=== PATIENT | male | born 1960 | race American Indian/Alaskan Native ===

== ENCOUNTER 2022-02-05 14:15 | Inpatient (IN) | payer MEDICARE ==
[2022-02-05] MEDS ORDERED: SODIUM CHLORIDE 0.9% 1000 ML 1,000 ML IV ONE ×2 (14:47→17:35)
--- NOTE | 2022-02-05 15:42 | Procedure Note ---
Date of procedure: 02/05/22 Pre-op diagnosis: Sepsis Post-op diagnosis: same Procedure: Right femoral vein triple-lumen catheter placement under ultrasound guidance After informed consent was obtained, a timeout was taken with the patient's nurse at bedside to verify the correct patient, the correct procedure, and correct operative site. Local anesthesia obtained with 1% lidocaine. Ultrasound was utilized to localize the right femoral vein without difficulty. The Seldinger technique was utilized under ultrasound guidance to insert a seeker needle into the right femoral vein without difficulty. A guidewire was then advanced via the seeker needle into the right femoral vein and the seeker needle subsequently moved over the guidewire. A scalpel was used to incise the skin at the insertion site. A dilator was then passed over the guidewire into the right femoral vein and subsequently removed. A preflush triple-lumen catheter was then advanced to the right femoral vein without difficulty and the guidewire subsequently removed. All 3 ports flush and drawl with ease. 3-0 silk suture was utilized to suture the triple-lumen catheter in place. A Biopatch was placed at the insertion site. A sterile dressing was utilized to cover the triple-lumen catheter site. Estimated blood loss minimal, complications none. Specimens none. Anesthesia: local Surgeon: FLO MANCIA Estimated blood loss: minimal Pathology: none Condition: stable Disposition: other
--- NOTE | 2022-02-05 15:42 | History and Physical Report ---
History of Present Illness Chief complaint: His blood pressure is low History of present illness: 61 YO Male with CHF, DM, history is CVA, Seizure Disorder, history of Hyperparathyroidism, ESRD on HD, HTN, PVD, Vascular Dementia with Behavioral Disturbance, Cerebral Atherosclerosis, BLE Pressure sores present on admission presents to ED for evaluation. Patient is confused with diminished cognition and is unable to provide history. Patient history taken from EMS staff, ED staff, as well as patient family who was made available by telephone for interview. Patient presented to [place] outpatient clinic and was found to have hypotension with a systolic blood pressure in the 80s. EMS was notified and upon arrival the patient was found to be in distress and subsequent transported to [facility] for further care and evaluation of the aforementioned symptoms. The patient was seen and evaluated in the emergency department. All lab and imaging studies reviewed. Patient found to have a systolic blood pressure in the 60s with concomitant tachycardia suspected secondary to urinary tract infection complicated by sepsis, toxic metabolic encephalopathy, volume depletion, end- stage renal disease in need of urgent dialysis. Patient treated with IV fluid resuscitation therapy with mild improvement in symptoms. Patient admitted to IMCU due to increased risk of worsening symptoms and for medical stabilization. Patient initiated on sepsis protocol in ED. Patient is confused with diminished cognition but has a positive gag reflex and is able to protect his airway without difficulty the time my evaluation. No prior admission for review. No medication listed at time of admission for reconciliation. Advanced care planning conducted in ED. Nephrology team consulted in ED. Past History Past Medical History: diabetes, ESRD, heart failure, hypertension, PVD, stroke, other (See HPI) Past Surgical History: Other (Dialysis access) Social history: single. denies: smoking, alcohol abuse, prescription drug abuse Family history: diabetes, hypertension Medications and Allergies Allergies Allergy/AdvReac Type Severity Reaction Status Date / Time No Known Allergies Allergy Verified 02/05/22 14:20 Active Meds: Active Medications Sodium Chloride (Nacl 0.9% 1000 Ml) 1,000 mls @ 999 mls/hr IV BOLUS ONE Stop: 02/05/22 15:47 Review of Systems ROS unobtainable: due to mental status Exam - Constitutional Vitals: Temp Pulse Resp BP Pulse Ox 105 H 60/32 76 L 02/05/22 14:17 02/05/22 14:17 02/05/22 14:17 General appearance: Present: mild distress - EENT Eyes: Present: PERRL ENT: hearing decreased - Neck Neck: Present: supple, normal ROM - Respiratory Respiratory effort: normal Respiratory: bilateral: diminished - Cardiovascular Heart Sounds: Present: S1 & S2. Absent: rub, click - Extremities Extremities: abnormal Extremity abnormal: black, pulses diminished Peripheral Pulses: abnormal (Capillary refill greater than 3.5 seconds) - Abdominal General gastrointestinal: Present: soft, non-tender, non-distended - Integumentary Integumentary: Present: clear, dry, clammy, decreased turgor - Musculoskeletal Musculoskeletal: generalized weakness - Psychiatric Psychiatric: no appropriate mood/affect, no intact judgment & insight, no memory intact - Neurologic Neurologic: CNII-XII intact, moves all extremities, no gait normal Results - Labs CBC & Chem 7: 02/05/22 15:44 02/05/22 15:44 Assessment and Plan - Patient Problems (1) Sepsis Current Visit: Yes Status: Acute Plan to address problem: Sepsis protocol: Chest x-ray, urinalysis, CBC, IV antibiotic therapy, IV fluid resuscitation therapy, monitor urine output every shift, monitor fluid balance, maintain mean arterial pressure greater than equal to 65, serial lactic acid level, IV pressor support as clinically indicated. (2) Toxic metabolic encephalopathy Current Visit: Yes Status: Acute Plan to address problem: Treat sepsis, supportive care, neuro check, seizure precautions, aspiration precautions, fall precautions. (3) End stage renal disease Current Visit: Yes Status: Acute Plan to address problem: Nephrology team consulted in ED, dialysis per renal team. (4) Volume depletion Current Visit: Yes Status: Acute Plan to address problem: IV for resuscitation therapy, BMP, repeat BMP in AM. (5) Malnutrition Current Visit: Yes Status: Acute Qualifiers: Protein-calorie malnutrition severity: moderate Plan to address problem: Increase protein intake, dietary supplementation. (6) End stage renal disease Current Visit: Yes Status: Acute Plan to address problem: Nephrology team consulted in ED, dialysis as per renal team. (7) Vascular dementia with behavior disturbance Current Visit: Yes Status: Acute Plan to address problem: Verbal prompt, verbal redirection, benzodiazepine therapy as clinically indicated. (8) Cerebral atherosclerosis Current Visit: Yes Status: Acute Plan to address problem: Risk factor reduction, antiplatelet therapy as clinically indicated. (9) Peripheral vascular disease Current Visit: Yes Status: Acute Plan to address problem: Supportive care, continue wound care, continue medical management. Outpatient vascular surgery follow-up. (10) Pressure sore Current Visit: Yes Status: Acute Plan to address problem: Wound care consulted, supportive care. (11) Seizure disorder Current Visit: Yes Status: Acute Plan to address problem: Seizure cautions, neuro check, supportive care. No seizure activity at this time. (12) Hyperparathyroidism Current Visit: Yes Status: Acute Plan to address problem: Continue medical management as clinically indicated, supportive care. (13) Hyperkalemia Current Visit: Yes Status: Acute Plan to address problem: Insulin, D50, BMP, repeat BMP in a.m., no EKG changes (14) DVT prophylaxis Current Visit: Yes Status: Acute Plan to address problem: SCD to bilateral lower extremities while in bed (15) Advance care planning Current Visit: Yes Status: Acute Plan to address problem: Disease education done, care plan discussed, diagnoses discussed, prognosis disc ussed, patient is full code, +30 minutes. (16) Preventative health care Current Visit: Yes Status: Acute Plan to address problem: Patient to follow-up with primary care physician for all age and risk factor appropriate screening tests, risk factor reduction, +30 minutes.
--- NOTE | 2022-02-05 15:49 | XRay Report ---
CHEST 1 VIEW 02/05/2022 2:42 PM INDICATION / CLINICAL INFORMATION: Altered Mental Status. COMPARISON: None available. FINDINGS: SUPPORT DEVICES: None. HEART / MEDIASTINUM: Borderline to mild cardiomegaly. LUNGS / PLEURA: There is mild pulmonary congestion. No focal consolidation, pleural effusion or pneum othorax. ADDITIONAL FINDINGS: No significant additional findings. IMPRESSION: 1. Cardiomegaly and pulmonary venous congestion but no CHF. Signer Name: Woody Corbett Jr, MD Signed: 02/05/2022 3:44 PM Workstation Name: [id number]
[2022-02-05 16:10] LABS: Hematocrit 25.8 % (35.5-45.6); Hemoglobin 8.6 gm/dl (11.8-15.2); Mean Corpuscular HGB Conc 33 % (32-34); Mean Corpuscular Volume 92 fl (84-94); Red Cell Distribution Width 17.8 % (13.2-15.2)
[2022-02-05 16:11] LABS: Platelet Count 98 K/mm3 (140-440)
[2022-02-05 16:21] LABS: INR 1.39 (0.87-1.13)
[2022-02-05 16:37] LABS: Alanine Aminotransferase 136 units/L (7-56); Albumin 3.3 g/dL (3.9-5); Blood Urea Nitrogen 80 mg/dL (9-20); Calcium 8.4 mg/dL (8.4-10.2); Hemolysis Index 8
[2022-02-05 16:40] LABS: BUN/Creatinine Ratio 9
[2022-02-05] MEDS ORDERED: INSULIN REGULAR, HUMAN 100 UNITS/1 ML IV ONE (16:42)
[2022-02-05] MEDS ORDERED: DEXTROSE 50% IN WATER (25GM) 50 ML SYRINGE IV ONE ×7 (16:43→23:14)
[2022-02-05] MEDS ORDERED: SODIUM POLYSTYRENE 15 GM/60 ML ORAL LIQD PO ONE (16:43)
[2022-02-05 16:44] LABS: Band Neutrophils # (Manual) 0.2 K/mm3; Basophils % (Manual) 0 % (0.0-1.8); Eosinophils % (Manual) 0 % (0.0-4.3); Total Cells Counted 100
[2022-02-05 16:45] LABS: Anisocytosis 1+; Burr Cells 1+; Platelet Estimate Consistent w Auto; Poikilocytosis 1+
[2022-02-05] MEDS ORDERED: CALCIUM CHLORIDE 1,000 MG in SODIUM CHLORIDE 0.9% 100 ML IV ONE (17:30)
[2022-02-05] MEDS ORDERED: oxyCODONE /ACETAMINOPHEN 5-325MG TAB PO PRN (18:16)
[2022-02-05] MEDS ORDERED: SODIUM CHLORIDE 0.9% 1000 ML IV SOLN IV SCH (18:16)
[2022-02-05] MEDS ORDERED: ALBUTEROL 2.5 MG/3 ML NEBU IH PRN (18:16)
[2022-02-05] MEDS ORDERED: ACETAMINOPHEN 325 MG TAB PO PRN ×2 (18:16)
[2022-02-05] MEDS ORDERED: HYDROmorphone 0.5 MG/0.5 ML INJ IV PRN ×2 (18:16)
--- NOTE | 2022-02-05 18:23 | Emergency Department Report ---
ED Altered Mental Status HPI - General Chief Complaint: Altered Mental Status Stated Complaint: HYPERTENSION/VOMITING PUI?: No Time Seen by Provider: 02/05/22 14:45 Source: EMS Mode of arrival: Stretcher Limitations: Altered Mental Status - History of Present Illness Initial Comments: PT ARRIVING FROM [facility] FOR AMS, HYPOTENSIVE 80/62. 76% RA. UNKNOWN LKWT. Complaint: altered mental status, confusion, decreased responsiveness -: Gradual, hour(s) Severity: severe Consistency of Symptoms: constant Context: unknown Associated Symptoms: denies: denies other symptoms, chest pain, cough - Related Data Allergies Allergy/AdvReac Type Severity Reaction Status Date / Time No Known Allergies Allergy Verified 02/05/22 14:20 ED Review of Systems ROS: Stated complaint: HYPERTENSION/VOMITING Other details as noted in HPI Constitutional: denies: chills, fever Eyes: denies: eye pain, eye discharge, vision change ENT: denies: ear pain, throat pain Respiratory: denies: cough, shortness of breath, wheezing Cardiovascular: denies: chest pain, palpitations Endocrine: no symptoms reported Gastrointestinal: denies: abdominal pain, nausea, diarrhea Genitourinary: denies: urgency, dysuria Musculoskeletal: denies: back pain, joint swelling, arthralgia Skin: denies: rash, lesions Neurological: denies: headache, weakness, paresthesias Psychiatric: denies: anxiety, depression Hematological/Lymphatic: denies: easy bleeding, easy bruising ED Past Medical Hx - Past Medical History Previous Medical History?: Yes Hx Congestive Heart Failure: Yes Hx Diabetes: Yes Hx Renal Disease: Yes (esrd,dialysis) Additional medical history: osteomylelits ,cva,hyperparathyroidism,seizures, ED Physical Exam - General Limitations: Altered Mental Status General appearance: lethargic, cachectic - Head Head exam: Present: atraumatic, normocephalic - ENT ENT exam: Present: mucous membranes moist - Neck Neck exam: Present: normal inspection - Respiratory Respiratory exam: Present: normal lung sounds bilaterally. Absent: respiratory distress - Cardiovascular Cardiovascular Exam: Present: regular rate, normal rhythm. Absent: systolic murmur, diastolic murmur, rubs, gallop - GI/Abdominal GI/Abdominal exam: Present: soft, normal bowel sounds - Rectal Rectal exam: Present: deferred - Extremities Exam Extremities exam: Present: normal inspection - Back Exam Back exam: Present: normal inspection - Expanded Neurological Exam Expanded Neurological exam: Present: innattentive Patient oriented to: Absent: person, place, time Best Eye Response ([place]): (2) open to pain Best Motor Response ([place]): (5) localizes to pain Best Verbal Response ([place]): (3) inappropriate words [place] Total: 10 - Skin Skin exam: Present: warm, dry, intact, normal color. Absent: rash ED Course Vital Signs 02/05/22 02/05/22 02/05/22 14:17 14:56 15:15 Temperature Pulse Rate 105 H 75 70 Respiratory 20 20 Rate Blood Pressure 60/32 90/59 89/60 [Left] O2 Sat by Pulse 76 L 100 100 Oximetry 02/05/22 02/05/22 02/05/22 15:30 16:06 16:18 Temperature 98.7 F Pulse Rate 70 76 78 Respiratory 20 18 20 Rate Blood Pressure 93/58 91/65 87/64 [Left] O2 Sat by Pulse 100 100 100 Oximetry 02/05/22 02/05/22 02/05/22 16:27 17:18 17:46 Temperature Pulse Rate 87 74 74 Respiratory 20 18 18 Rate Blood Pressure 106/62 94/49 105/54 [Left] O2 Sat by Pulse 100 99 99 Oximetry - Lab Data Result diagrams: 02/05/22 15:44 02/05/22 15:44 Lab Results 02/05/22 02/05/22 02/05/22 Range/Units 15:44 15:44 15:44 WBC 8.5 (4.5-11.0) K/mm3 RBC 2.80 L (3.65-5.03) M/mm3 Hgb 8.6 L (11.8-15.2) gm/dl Hct 25.8 L (35.5-45.6) % MCV 92 (84-94) fl MCH 31 (28-32) pg MCHC 33 (32-34) % RDW 17.8 H (13.2-15.2) % Plt Count 98 L (140-440) K/mm3 Add Manual Diff Complete Total Counted 100 Seg Neutrophils % Meat Grading Machine Operator Seg Neuts % (Manual) 92.0 H (40.0-70.0) % Band Neutrophils % 2.0 % Lymphocytes % (Manual) 5.0 L (13.4-35.0) % Reactive Lymphs % (Man) 0 % Monocytes % (Manual) 1.0 (0.0-7.3) % Eosinophils % (Manual) 0 (0.0-4.3) % Basophils % (Manual) 0 (0.0-1.8) % Metamyelocytes % 0 % Myelocytes % 0 % Promyelocytes % 0 % Blast Cells % 0 % Nucleated RBC % Not Reportable Seg Neutrophils # Man 7.8 H (1.8-7.7) K/mm3 Band Neutrophils # 0.2 K/mm3 Lymphocytes # (Manual) 0.4 L (1.2-5.4) K/mm3 Abs React Lymphs (Man) 0.0 K/mm3 Monocytes # (Manual) 0.1 (0.0-0.8) K/mm3 Eosinophils # (Manual) 0.0 (0.0-0.4) K/mm3 Basophils # (Manual) 0.0 (0.0-0.1) K/mm3 Metamyelocytes # 0.0 K/mm3 Myelocytes # 0.0 K/mm3 Promyelocytes # 0.0 K/mm3 Blast Cells # 0.0 K/mm3 WBC Morphology Not Reportable Hypersegmented Neuts Not Reportable Hyposegmented Neuts Not Reportable Hypogranular Neuts Not Reportable Smudge Cells Not Reportable Toxic Granulation Not Reportable Toxic Vacuolation Not Reportable Dohle Bodies Not Reportable Pelger-Huet Anomaly Not Reportable Laney Rods Not Reportable Platelet Estimate Consistent w auto Clumped Platelets Not Reportable Plt Clumps, EDTA Not Reportable Large Platelets Not Reportable Giant Platelets Not Reportable Platelet Satelliting Not Reportable Plt Morphology Comment Not Reportable RBC Morphology Not Reportable Dimorphic RBCs Not Reportable Polychromasia Not Reportable Hypochromasia Not Reportable Poikilocytosis 1+ Anisocytosis 1+ Microcytosis Not Reportable Macrocytosis Not Reportable Spherocytes Not Reportable Pappenheimer Bodies Not Reportable Sickle Cells Not Reportable Target Cells Not Reportable Tear Drop Cells Not Reportable Ovalocytes Not Reportable Helmet Cells Not Reportable Gastelum-[place] Bodies Not Reportable Ericson Rings Not Reportable Jaxon Cells 1+ Bite Cells Not Reportable Crenated Cell Not Reportable Elliptocytes Not Reportable Acanthocytes (Spur) Not Reportable Rouleaux Not Reportable Hemoglobin C Crystals Not Reportable Schistocytes Not Reportable Malaria parasites Not Reportable [place] Bodies Not Reportable Hem Pathologist Commnt No PT 19.1 H (12.2-14.9) Sec. INR 1.39 H (0.87-1.13) Sodium 143 (137-145) mmol/L Potassium 6.5 H* (3.6-5.0) mmol/L Chloride 102.9 (98-107) mmol/L Carbon Dioxide 20 L (22-30) mmol/L Anion Gap 27 mmol/L BUN 80 H (9-20) mg/dL Creatinine 9.3 H (0.8-1.3) mg/dL Estimated GFR 7 ml/min BUN/Creatinine Ratio 9 % Glucose 81 (75-100) mg/dL Ketones Quantitative (Negative) Lactic Acid (0.7-2.0) mmol/L Calcium 8.4 (8.4-10.2) mg/dL Total Bilirubin 0.50 (0.1-1.2) mg/dL AST 72 H (5-40) units/L ALT 136 H (7-56) units/L Alkaline Phosphatase 480 H (35-129) units/L Ammonia (25-60) umol/L Total Creatine Kinase 80 (55-170) units/L Troponin T 0.521 H* (0.00-0.029) ng/mL NT-Pro-B Natriuret Pep > 61951 H (0-900) pg/mL Total Protein 6.3 (6.3-8.2) g/dL Albumin 3.3 L (3.9-5) g/dL Albumin/Globulin Ratio 1.1 % Salicylates (2.8-20.0) mg/dL Acetaminophen (10.0-30.0) ug/mL 02/05/22 02/05/22 02/05/22 Range/Units 15:44 15:44 15:44 WBC (4.5-11.0) K/mm3 RBC (3.65-5.03) M/mm3 Hgb (11.8-15.2) gm/dl Hct (35.5-45.6) % MCV (84-94) fl MCH (28-32) pg MCHC (32-34) % RDW (13.2-15.2) % Plt Count (140-440) K/mm3 Add Manual Diff Total Counted Seg Neutrophils % Seg Neuts % (Manual) (40.0-70.0) % Band Neutrophils % % Lymphocytes % (Manual) (13.4-35.0) % Reactive Lymphs % (Man) % Monocytes % (Manual) (0.0-7.3) % Eosinophils % (Manual) (0.0-4.3) % Basophils % (Manual) (0.0-1.8) % Metamyelocytes % % Myelocytes % % Promyelocytes % % Blast Cells % % Nucleated RBC % Seg Neutrophils # Man (1.8-7.7) K/mm3 Band Neutrophils # K/mm3 Lymphocytes # (Manual) (1.2-5.4) K/mm3 Abs React Lymphs (Man) K/mm3 Monocytes # (Manual) (0.0-0.8) K/mm3 Eosinophils # (Manual) (0.0-0.4) K/mm3 Basophils # (Manual) (0.0-0.1) K/mm3 Metamyelocytes # K/mm3 Myelocytes # K/mm3 Promyelocytes # K/mm3 Blast Cells # K/mm3 WBC Morphology Hypersegmented Neuts Hyposegmented Neuts Hypogranular Neuts Smudge Cells Toxic Granulation Toxic Vacuolation Dohle Bodies Pelger-Huet Anomaly Laney Rods Platelet Estimate Clumped Platelets Plt Clumps, EDTA Large Platelets Giant Platelets Platelet Satelliting Plt Morphology Comment RBC Morphology Dimorphic RBCs Polychromasia Hypochromasia Poikilocytosis Anisocytosis Microcytosis Macrocytosis Spherocytes Pappenheimer Bodies Sickle Cells Target Cells Tear Drop Cells Ovalocytes Helmet Cells Gastelum-[place] Bodies Ericson Rings [place] Cells Bite Cells Crenated Cell Elliptocytes Acanthocytes (Spur) Rouleaux Hemoglobin C Crystals Schistocytes Malaria parasites [place] Bodies Hem Pathologist Commnt PT (12.2-14.9) Sec. INR (0.87-1.13) Sodium (137-145) mmol/L Potassium (3.6-5.0) mmol/L Chloride (98-107) mmol/L Carbon Dioxide (22-30) mmol/L Anion Gap mmol/L BUN (9-20) mg/dL Creatinine (0.8-1.3) mg/dL Estimated GFR ml/min BUN/Creatinine Ratio % Glucose (75-100) mg/dL Ketones Quantitative (Negative) Lactic Acid 2.70 H* (0.7-2.0) mmol/L Calcium (8.4-10.2) mg/dL Total Bilirubin (0.1-1.2) mg/dL AST (5-40) units/L ALT (7-56) units/L Alkaline Phosphatase (35-129) units/L Ammonia (25-60) umol/L Total Creatine Kinase (55-170) units/L Troponin T (0.00-0.029) ng/mL NT-Pro-B Natriuret Pep (0-900) pg/mL Total Protein (6.3-8.2) g/dL Albumin (3.9-5) g/dL Albumin/Globulin Ratio % Salicylates < 0.3 L (2.8-20.0) mg/dL Acetaminophen 5.0 L (10.0-30.0) ug/mL 02/05/22 02/05/22 Range/Units 15:44 15:44 WBC (4.5-11.0) K/mm3 RBC (3.65-5.03) M/mm3 Hgb (11.8-15.2) gm/dl Hct (35.5-45.6) % MCV (84-94) fl MCH (28-32) pg MCHC (32-34) % RDW (13.2-15.2) % Plt Count (140-440) K/mm3 Add Manual Diff Total Counted Seg Neutrophils % Seg Neuts % (Manual) (40.0-70.0) % Band Neutrophils % % Lymphocytes % (Manual) (13.4-35.0) % Reactive Lymphs % (Man) % Monocytes % (Manual) (0.0-7.3) % Eosinophils % (Manual) (0.0-4.3) % Basophils % (Manual) (0.0-1.8) % Metamyelocytes % % Myelocytes % % Promyelocytes % % Blast Cells % % Nucleated RBC % Seg Neutrophils # Man (1.8-7.7) K/mm3 Band Neutrophils # K/mm3 Lymphocytes # (Manual) (1.2-5.4) K/mm3 Abs React Lymphs (Man) K/mm3 Monocytes # (Manual) (0.0-0.8) K/mm3 Eosinophils # (Manual) (0.0-0.4) K/mm3 Basophils # (Manual) (0.0-0.1) K/mm3 Metamyelocytes # K/mm3 Myelocytes # K/mm3 Promyelocytes # K/mm3 Blast Cells # K/mm3 WBC Morphology Hypersegmented Neuts Hyposegmented Neuts Hypogranular Neuts Smudge Cells Toxic Granulation Toxic Vacuolation Dohle Bodies Pelger-Huet Anomaly Laney Rods Platelet Estimate Clumped Platelets Plt Clumps, EDTA Large Platelets Giant Platelets Platelet Satelliting Plt Morphology Comment RBC Morphology Dimorphic RBCs Polychromasia Hypochromasia Poikilocytosis Anisocytosis Microcytosis Macrocytosis Spherocytes Pappenheimer Bodies Sickle Cells Target Cells Tear Drop Cells Ovalocytes Helmet Cells Gastelum-[place] Bodies Ericson Rings [place] Cells Bite Cells Crenated Cell Elliptocytes Acanthocytes (Spur) Rouleaux Hemoglobin C Crystals Schistocytes Malaria parasites [place] Bodies Hem Pathologist Commnt PT (12.2-14.9) Sec. INR (0.87-1.13) Sodium (137-145) mmol/L Potassium (3.6-5.0) mmol/L Chloride (98-107) mmol/L Carbon Dioxide (22-30) mmol/L Anion Gap mmol/L BUN (9-20) mg/dL Creatinine (0.8-1.3) mg/dL Estimated GFR ml/min BUN/Creatinine Ratio % Glucose (75-100) mg/dL Ketones Quantitative Negative (Negative) Lactic Acid (0.7-2.0) mmol/L Calcium (8.4-10.2) mg/dL Total Bilirubin (0.1-1.2) mg/dL AST (5-40) units/L ALT (7-56) units/L Alkaline Phosphatase (35-129) units/L Ammonia 22.0 L (25-60) umol/L Total Creatine Kinase (55-170) units/L Troponin T (0.00-0.029) ng/mL NT-Pro-B Natriuret Pep (0-900) pg/mL Total Protein (6.3-8.2) g/dL Albumin (3.9-5) g/dL Albumin/Globulin Ratio % Salicylates (2.8-20.0) mg/dL Acetaminophen (10.0-30.0) ug/mL - EKG Data -: EKG Interpreted by Me EKG shows normal: sinus rhythm - Radiology Data Radiology results: report reviewed, image reviewed - Medical Decision Making work up showed : - CRF : chornic on dilaysis - Hypotension : sepsis work up abx started , central line placed - AMS : 2ry to sepsis - Hypekalemia L Cacl3 , glucose and insulin , kaxalate Critical care attestation.: If time is entered above; I have spent that time in minutes in the direct care of this critically ill patient, excluding procedure time. ED Disposition Clinical Impression: Encephalopathy, Altered mental status, Hyperkalemia, Chronic renal failure, Hypotension Disposition: 09 ADMITTED INPATIENT Is pt being admited?: Yes Does the pt Need Aspirin: No Condition: Fair Referrals: ANGEL VIGIL MD [Primary Care Provider] - 3-5 Days
[2022-02-05] MEDS ORDERED: CEFEPIME/NS 2 GM/100 ML 2 GM/100 ML BAG IV SCH (19:00)
--- NOTE | 2022-02-05 19:43 | Procedure Note ---
Date of procedure: 02/05/22 Pre-op diagnosis: Sepsis Post-op diagnosis: same Procedure: Right internal jugular vein triple-lumen catheter placement. After informed consent was obtained, a timeout was taken with the patient's nurse at bedside to verify the correct patient, the correct procedure, and correct operative site. Local anesthesia obtained with 1% lidocaine. Ultrasound was utilized to localize the right internal jugular vein without difficulty. The Seldinger technique was utilized under ultrasound guidance to insert a seeker needle into the right internal jugular vein without difficulty. A guidewire was then advanced via the seeker needle into the right internal j ugular vein and the seeker needle subsequently moved over the guidewire. A scalpel was used to incise the skin at the insertion site. A dilator was then passed over the guidewire into the right femoral vein and subsequently removed. A preflush triple-lumen catheter was then advanced to the right internal jugular vein without difficulty and the guidewire subsequently removed. All 3 ports flush and drawl with ease. A Biopatch was placed at the insertion site. Estimated blood loss minimal, complications:Patient became agitated and subsequently discontinued right internal jugular vein triple-lumen catheter prior to x-ray evaluation. An alternative site was then chosen for access. Anesthesia: local Surgeon: FLO MANCIA Estimated blood loss: none Pathology: none Condition: stable Disposition: other
[2022-02-05] MEDS ORDERED: D5W/0.45% NACL 1,000 ML IV ONE (22:48)
[2022-02-05] MEDS: DEXTROSE 5% IN WATER 1,000 ML IV SCH (23:17)
[2022-02-06 00:29] LABS: Calcium 8.7 mg/dL (8.4-10.2)
[2022-02-06] MEDS: CEFEPIME/NS 1 GM/100 ML 1 GM/100 ML BAG IV SCH ×2 (01:14→20:30)
[2022-02-06 03:10] LABS: Chol/HDL Ratio 1.73 %; HDL Cholesterol 46 mg/dL (40-59); LDL Cholesterol,Direct 24 mg/dL (50-130)
[2022-02-06 05:30] LABS: Hematocrit 24.5 % (35.5-45.6); Hemoglobin 7.7 gm/dl (11.8-15.2); Mean Corpuscular HGB Conc 32 % (32-34); Mean Corpuscular Volume 94 fl (84-94); Red Blood Count 2.61 M/mm3 (3.65-5.03); Red Cell Distribution Width 17.5 % (13.2-15.2)
[2022-02-06 05:33] LABS: Platelet Count 81 K/mm3 (140-440)
[2022-02-06 05:55] LABS: Calcium 8.6 mg/dL (8.4-10.2)
[2022-02-06] MEDS ORDERED: DEXTROSE 50% IN WATER (25GM) 50 ML SYRINGE IV ONE ×3 (06:26→12:55)
[2022-02-06 06:36] LABS: Basophils % (Manual) 0 % (0.0-1.8); Eosinophils % (Manual) 0 % (0.0-4.3); Total Cells Counted 100
[2022-02-06 06:37] LABS: Platelet Estimate Consistent w Auto
[2022-02-06] MEDS ORDERED: SODIUM CHLORIDE 0.9% 100 ML IV PRN ×2 (10:00→15:00)
[2022-02-06] MEDS: DEXTROSE 5% IN WATER 1,000 ML IV SCH (10:18)
--- NOTE | 2022-02-06 13:22 | Progress Note ---
Assessment and Plan Assessment and plan: 61 YO Male with CHF, DM, history is CVA, Seizure Disorder, history of Hyperparathyroidism, ESRD on HD, HTN, PVD, Vascular Dementia with Behavioral Disturbance, Cerebral Atherosclerosis, BLE Pressure sores present on admission presents to ED for evaluation. Patient is confused with diminished cognition a nd is unable to provide history. Patient history taken from EMS staff, ED staff, as well as patient family who was made available by telephone for interview. Patient presented to [facility] outpatient clinic and was found to have hypotension with a systolic blood pressure in the 80s. EMS was notified and upon arrival the patient was found to be in distress and subsequent transported to [facility] for further care and evaluation of the aforementioned symptoms. The patient was seen and evaluated in the emergency department. All lab and imaging studies reviewed. Patient found to have a systolic blood pressure in the 60s with concomitant tachycardia suspected secondary to urinary tract infection complicated by sepsis, toxic metabolic encephalopathy, volume depletion, end- stage renal disease in need of urgent dialysis. Patient treated with IV fluid resuscitation therapy with mild improvement in symptoms. Patient admitted to IMCU due to increased risk of worsening symptoms and for medical stabilization. Patient initiated on sepsis protocol in ED. Patient is confused with diminished cognition but has a positive gag reflex and is able to protect his airway without difficulty the time my evaluation. No prior admission for review. No medication listed at time of admission for reconciliation. Advanced care planning conducted in ED. Nephrology team consulted in ED. Past History Past Medical History: diabetes, ESRD, heart failure, hypertension, PVD, stroke, other (See HPI) Past Surgical History: Other (Dialysis access) Social history: single. denies: smoking, alcohol abuse, prescription drug abuse Family history: diabetes, hypertension 02/06: Patient seen and examined continues with persistent hypoglycemia will change to D10. I did discuss with the sister who indicates that the patient has been having a failure to thrive over the past few days. That the patient ACTUALLY had a seizure of the doctor's office. We will obtain neurology consult in a.m.. No further seizures has been documented here so no need for the EEG unless recommended by the neurologist. We will resume diet as tolerated the sister also tells me that the patient has been refusing meds. She is not sure if the patient has been compliant with dialysis we will try to get information about about from the dialysis center that he goes to. In the meantime continue empiric treatment for underlying sepsis. We will give midodrine. I do not have a source for this but without infection. We will try to call the facility where he went to to see with urinary tract infection diagnosis was made at. Patient has not demonstrated any fever here. (1) Sepsis Current Visit: Yes Status: Acute Plan to address problem: Sepsis protocol: Chest x-ray, urinalysis, CBC, IV antibiotic therapy, IV fluid resuscitation therapy, monitor urine output every shift, monitor fluid balance, maintain mean arterial pressure greater than equal to 65, serial lactic acid level, IV pressor support as clinically indicated. (2) Toxic metabolic encephalopathy Current Visit: Yes Status: Acute Plan to address problem: Treat sepsis, supportive care, neuro check, seizure precautions, aspiration precautions, fall precautions. (3) End stage renal disease Current Visit: Yes Status: Acute Plan to address problem: Nephrology team consulted in ED, dialysis per renal team. (4) Volume depletion Current Visit: Yes Status: Acute Plan to address problem: IV for resuscitation therapy, BMP, repeat BMP in AM. (5) severe protein malnutrition Current Visit: Yes Status: Acute Qualifiers: Protein-calorie malnutrition severity: Severe Plan to address problem: Increase protein intake, dietary supplementation. (6) End stage renal disease Current Visit: Yes Status: Acute Plan to address problem: Nephrology team consulted in ED, dialysis as per renal team. (7) Vascular dementia with behavior disturbance Current Visit: Yes Status: Acute Plan to address problem: Verbal prompt, verbal redirection, benzodiazepine therapy as clinically indicated. (8) Cerebral atherosclerosis Current Visit: Yes Status: Acute Plan to address problem: Risk factor reduction, antiplatelet therapy as clinically indicated. (9) Peripheral vascular disease Current Visit: Yes Status: Acute Plan to address problem: Supportive care, continue wound care, continue medical management. Outpatient vascular surgery follow-up. (10) multiple pressure ulcers present on admission Current Visit: Yes Status: Acute Plan to address problem: Wound care consulted, supportive care. (11) Seizure disorder Current Visit: Yes Status: Acute Plan to address problem: Seizure cautions, neuro check, supportive care. No seizure activity at this time. (12) Hyperparathyroidism Current Visit: Yes Status: Acute Plan to address problem: Continue medical management as clinically indicated, supportive care. (13) Hyperkalemia Current Visit: Yes Status: Acute Plan to address problem: Insulin, D50, BMP, repeat BMP in a.m., no EKG changes (14) DVT prophylaxis Current Visit: Yes Status: Acute Plan to address problem: SCD to bilateral lower extremities while in bed (15) Advance care planning Current Visit: Yes Status: Acute Plan to address problem: Disease education done, care plan discussed, diagnoses discussed, prognosis discussed, patient is full code, +30 minutes. (16) Preventative health care Current Visit: Yes Status: Acute Plan to address problem: Patient to follow-up with primary care physician for all age and risk factor appropriate screening tests, risk factor reduction, +30 minutes. The high probability of a clinically significant, sudden or life threatening deterioration of the [multiple organ] system(s) required my full and direct attention, intervention and personal management. The aggregate critical care time was [60] minutes. This time is in addition to time spent performing reported procedures but includes the following: [x] Data Review and interpretation [x] Patient assessment and monitoring of vital signs [x] Documentation [x] Medication orders and management History Interval history: Patient seen and examined, extremely lethargic, discussed with family. Patient is a DNR Hospitalist Physical - Physical exam Narrative exam: General appearance: Present: mild distress - EENT Eyes: Present: PERRL ENT: hearing decreased - Neck Neck: Present: supple, normal ROM - Respiratory Respiratory effort: normal Respiratory: bilateral: diminished - Cardiovascular Heart Sounds: Present: S1 & S2. Absent: rub, click - Extremities Extremities: abnormal Extremity abnormal: black, pulses diminished Peripheral Pulses: abnormal (Capillary refill greater than 3.5 seconds) - Abdominal General gastrointestinal: Present: soft, non-tender, non-distended - Integumentary Integumentary: Present: Please see wound care documentation for multiple skin ulcers as documented also pictorially clammy, decreased turgor - Musculoskeletal Musculoskeletal: generalized weakness - Psychiatric Psychiatric: no appropriate mood/affect, no intact judgment & insight, no memory intact - Neurologic Neurologic: CNII-XII intact, moves all extremities, no gait normal - Constitutional Vitals: Temp Pulse Resp BP Pulse Ox 98.7 F 63 15 96/59 96 02/05/22 16:06 02/06/22 10:00 02/06/22 07:30 02/06/22 07:30 02/06/22 07:30 General appearance: Present: mild distress HEART Score - HEART Score Troponin: Troponin T 0.521 ng/mL (0.00-0.029) H* 02/05/22 15:44 Results - Labs CBC & Chem 7: 02/06/22 04:59 02/06/22 04:59 Labs: Laboratory Last Values WBC 9.1 K/mm3 (4.5-11.0) 02/06/22 04:59 RBC 2.61 M/mm3 (3.65-5.03) L 02/06/22 04:59 Hgb 7.7 gm/dl (11.8-15.2) L 02/06/22 04:59 Hct 24.5 % (35.5-45.6) L 02/06/22 04:59 MCV 94 fl (84-94) 02/06/22 04:59 MCH 30 pg (28-32) 02/06/22 04:59 MCHC 32 % (32-34) 02/06/22 04:59 RDW 17.5 % (13.2-15.2) H 02/06/22 04:59 Plt Count 81 K/mm3 (140-440) L 02/06/22 04:59 Add Manual Diff Complete 02/06/22 04:59 Total Counted 100 02/06/22 04:59 Seg Neutrophils % Knife Blade Polisher 02/06/22 04:59 Seg Neuts % (Manual) 95.0 % (40.0-70.0) H 02/06/22 04:59 Band Neutrophils % 0 % 02/06/22 04:59 Lymphocytes % (Manual) 3.0 % (13.4-35.0) L 02/06/22 04:59 Reactive Lymphs % (Man) 0 % 02/06/22 04:59 Monocytes % (Manual) 2.0 % (0.0-7.3) 02/06/22 04:59 Eosinophils % (Manual) 0 % (0.0-4.3) 02/06/22 04:59 Basophils % (Manual) 0 % (0.0-1.8) 02/06/22 04:59 Metamyelocytes % 0 % 02/06/22 04:59 Myelocytes % 0 % 02/06/22 04:59 Promyelocytes % 0 % 02/06/22 04:59 Blast Cells % 0 % 02/06/22 04:59 Nucleated RBC % Not Reportable 02/06/22 04:59 Seg Neutrophils # Man 8.6 K/mm3 (1.8-7.7) H 02/06/22 04:59 Band Neutrophils # 0.0 K/mm3 02/06/22 04:59 Lymphocytes # (Manual) 0.3 K/mm3 (1.2-5.4) L 02/06/22 04:59 Abs React Lymphs (Man) 0.0 K/mm3 02/06/22 04:59 Monocytes # (Manual) 0.2 K/mm3 (0.0-0.8) 02/06/22 04:59 Eosinophils # (Manual) 0.0 K/mm3 (0.0-0.4) 02/06/22 04:59 Basophils # (Manual) 0.0 K/mm3 (0.0-0.1) 02/06/22 04:59 Metamyelocytes # 0.0 K/mm3 02/06/22 04:59 Myelocytes # 0.0 K/mm3 02/06/22 04:59 Promyelocytes # 0.0 K/mm3 02/06/22 04:59 Blast Cells # 0.0 K/mm3 02/06/22 04:59 WBC Morphology Not Reportable 02/06/22 04:59 Hypersegmented Neuts Not Reportable 02/06/22 04:59 Hyposegmented Neuts Not Reportable 02/06/22 04:59 Hypogranular Neuts Not Reportable 02/06/22 04:59 Smudge Cells Not Reportable 02/06/22 04:59 Toxic Granulation Not Reportable 02/06/22 04:59 Toxic Vacuolation Not Reportable 02/06/22 04:59 Dohle Bodies Not Reportable 02/06/22 04:59 Pelger-Huet Anomaly Not Reportable 02/06/22 04:59 Laney Rods Not Reportable 02/06/22 04:59 Platelet Estimate Consistent w auto 02/06/22 04:59 Clumped Platelets Not Reportable 02/06/22 04:59 Plt Clumps, EDTA Not Reportable 02/06/22 04:59 Large Platelets Not Reportable 02/06/22 04:59 Giant Platelets Not Reportable 02/06/22 04:59 Platelet Satelliting Not Reportable 02/06/22 04:59 Plt Morphology Comment Not Reportable 02/06/22 04:59 RBC Morphology Not Reportable 02/06/22 04:59 Dimorphic RBCs Not Reportable 02/06/22 04:59 Polychromasia Not Reportable 02/06/22 04:59 Hypochromasia Not Reportable 02/06/22 04:59 Poikilocytosis Not Reportable 02/06/22 04:59 Anisocytosis Not Reportable 02/06/22 04:59 Microcytosis Not Reportable 02/06/22 04:59 Macrocytosis Not Reportable 02/06/22 04:59 Spherocytes Not Reportable 02/06/22 04:59 Pappenheimer Bodies Not Reportable 02/06/22 04:59 Sickle Cells Not Reportable 02/06/22 04:59 Target Cells Not Reportable 02/06/22 04:59 Tear Drop Cells Not Reportable 02/06/22 04:59 Ovalocytes Not Reportable 02/06/22 04:59 Helmet Cells Not Reportable 02/06/22 04:59 [place] Bodies Not Reportable 02/06/22 04:59 [place] Rings Not Reportable 02/06/22 04:59 [place] Cells Not Reportable 02/06/22 04:59 Bite Cells Not Reportable 02/06/22 04:59 Crenated Cell Not Reportable 02/06/22 04:59 Elliptocytes Not Reportable 02/06/22 04:59 Acanthocytes (Spur) 1+ 02/06/22 04:59 Rouleaux Not Reportable 02/06/22 04:59 Hemoglobin C Crystals Not Reportable 02/06/22 04:59 Schistocytes Not Reportable 02/06/22 04:59 Malaria parasites Not Reportable 02/06/22 04:59 [place] Bodies Not Reportable 02/06/22 04:59 Hem Pathologist Commnt No 02/06/22 04:59 PT 19.1 Sec. (12.2-14.9) H 02/05/22 15:44 INR 1.39 (0.87-1.13) H 02/05/22 15:44 Sodium 145 mmol/L (137-145) 02/06/22 04:59 Potassium 4.8 mmol/L (3.6-5.0) 02/06/22 04:59 Chloride 108.8 mmol/L (98-107) H 02/06/22 04:59 Carbon Dioxide 15 mmol/L (22-30) L 02/06/22 04:59 Anion Gap 26 mmol/L 02/06/22 04:59 BUN 78 mg/dL (9-20) H 02/06/22 04:59 Creatinine 9.2 mg/dL (0.8-1.3) H 02/06/22 04:59 Estimated GFR 7 ml/min 02/06/22 04:59 BUN/Creatinine Ratio 8 % 02/06/22 04:59 Glucose 26 mg/dL (75-100) L* 02/06/22 04:59 POC Glucose 52 mg/dL (70-105) L 02/06/22 11:45 Ketones Quantitative Negative (Negative) 02/05/22 15:44 Lactic Acid 3.30 mmol/L (0.7-2.0) H* 02/06/22 04:59 Calcium 8.6 mg/dL (8.4-10.2) 02/06/22 04:59 Total Bilirubin 0.40 mg/dL (0.1-1.2) 02/06/22 04:59 AST 40 units/L (5-40) 02/06/22 04:59 ALT 105 units/L (7-56) H 02/06/22 04:59 Alkaline Phosphatase 392 units/L (35-129) H 02/06/22 04:59 Ammonia 22.0 umol/L (25-60) L 02/05/22 15:44 Total Creatine Kinase 80 units/L (55-170) 02/05/22 15:44 Troponin T 0.521 ng/mL (0.00-0.029) H* 02/05/22 15:44 NT-Pro-B Natriuret Pep > 64129 pg/mL (0-900) H 02/05/22 15:44 Total Protein 5.5 g/dL (6.3-8.2) L 02/06/22 04:59 Albumin 3.0 g/dL (3.9-5) L 02/06/22 04:59 Albumin/Globulin Ratio 1.2 % 02/06/22 04:59 Triglycerides 45 mg/dL (2-149) 02/05/22 15:44 Cholesterol 80 mg/dL (50-199) 02/05/22 15:44 LDL Cholesterol Direct 24 mg/dL (50-130) L 02/05/22 15:44 HDL Cholesterol 46 mg/dL (40-59) 02/05/22 15:44 Cholesterol/HDL Ratio 1.73 % 02/05/22 15:44 Salicylates < 0.3 mg/dL (2.8-20.0) L 02/05/22 15:44 Acetaminophen 5.0 ug/mL (10.0-30.0) L 02/05/22 15:44 Plasma/Serum Alcohol < 0.01 % (0-0.07) 02/05/22 15:44 Blood Type O POSITIVE 02/05/22 23:42 Antibody Screen Negative 02/05/22 23:42 Microbiology: Microbiology 02/05/22 15:44 Peripheral/Venous Blood Culture - Preliminary Culture in Progress Active Medications - Current Medications Current Medications: Generic Name Dose Route Start Last Admin Trade Name Freq PRN Reason Stop Dose Admin Acetaminophen 650 mg 02/05/22 18:16 Acetaminophen 325 Mg Tab PO Q6H PRN Pain MILD(1-3)/Fever >100.5/[place] Albuterol 2.5 mg 02/05/22 18:16 Albuterol 2.5 Mg/3 Ml Nebu IH Q3HRT PRN Shortness Of Breath Hydromorphone HCl 0.25 mg 02/05/22 18:16 Hydromorphone 0.5 Mg/0.5 Ml Inj IV Q4H PRN Pain, Moderate (4-6) Hydromorphone HCl 0.5 mg 02/05/22 18:16 Hydromorphone 0.5 Mg/0.5 Ml Inj IV Q23H PRN Pain , Severe (7-10) Cefepime HCl 1 gm in 100 mls @ 200 mls/hr 02/05/22 19:30 02/06/22 01:14 Cefepime/Ns 1 Gm/100 Ml IV 200 mls/hr Q24H [place] Administration Protocol Dextrose 1,000 mls @ 75 mls/hr 02/05/22 23:45 02/06/22 10:18 D5w IV 75 mls/hr DIRECT [place] Administration Sodium Chloride 100 mls @ 999 mls/hr 02/06/22 10:00 Nacl 0.9% IV ELVIN PRN Hypotension Oxycodone/Acetaminophen 1 tab 02/05/22 18:16 Oxycodone /Acetaminophen 5-325mg Tab PO Q16H PRN Pain, Moderate (4-6) Sodium Chloride 10 ml 02/05/22 22:00 02/06/22 10:18 Sodium Chloride 0.9% 10 Ml Flush Syringe IV 10 ml BID [place] Administration Sodium Chloride 10 ml 02/05/22 18:16 Sodium Chloride 0.9% 10 Ml Flush Syringe IV PRN PRN LINE FLUSH
--- NOTE | 2022-02-06 16:23 | Ultrasound Report ---
ULTRASOUND ABDOMEN, COMPLETE INDICATION / CLINICAL INFORMATION: ABDOMINAL PAIN. COMPARISON: None available. FINDINGS: PANCREAS: No significant abnormality. ABDOMINAL AORTA: Moderate atherosclerotic calcification without evidence of aneurysm. IVC: No significant abnormality. LIVER: The liver is normal in size measuring 14.9 cm with mildly heterogeneous appearance. Scattered calcified granulomata. Pulsatile hepatopedal blood flow within the main portal vein suggests increase d right heart pressure. GALLBLADDER: A small amount of sludge is noted in the gallbladder. No evidence of gallstones, signifi cant wall thickening, or pericholecystic fluid. BILE DUCTS: No significant abnormality. Common bile duct measures 2 mm. KIDNEYS: Right: The right kidney measures 7.3 cm. Moderate parenchymal thinning with increased echoge nicity. Minimally complex lower pole cyst measuring 1 cm within internal septation. Left: The left ki dney measures 5.7 cm. Moderate parenchymal thinning with increased echogenicity.. Simple appearing up per pole cyst measuring 8 mm. SPLEEN: The spleen measures 11.7 cm. Scattered calcified granulomas. FREE FLUID: Mild abdominal ascites. ADDITIONAL FINDINGS: Bilateral pleural effusions. IMPRESSION: 1. No acute sonographic abnormality. 2. Mildly heterogeneous appearance of the liver, most commonly seen with steatosis or other underlyin g hepatocellular disease. 3. Small amount of sludge noted in the gallbladder. No evidence of gallstones. 4. Mild abdominal ascites and bilateral pleural effusions. 5. Findings suggestive of chronic medical renal disease with bilateral renal atrophy. Scribed by: Ami Ramírez RDMS, GIANNA, ANG Scribed: 02/06/2022 1:26 PM I have reviewed the images, agree with this report, and edited this report as needed. Signer Name: Med Messina MD Signed: 02/06/2022 4:19 PM Workstation Name: [id number]
[2022-02-06] MEDS: DEXTROSE 10% IN WATER 1,000 ML IV SCH (18:06)
--- NOTE | 2022-02-06 19:09 | Consultation ---
History of Present Illness - Reason for Consult Consult date: 02/06/22 end stage renal disease - History of Present Illness This is a 61-year-old male with end-stage renal disease on hemodialysis, hypertension, peripheral vascular disease, diabetes mellitus and CHF who was brought in by EMS due to encephalopathy from [facility] on 02/05/2022. He was subsequently admitted for further work-up and nephrology was consulted on 02/06/2022 for ESRD management. Patient is encephalopathic, history has been obtained from chart. Past History Past Medical History: diabetes, ESRD, heart failure, hypertension, PVD, stroke, other (See HPI) Past Surgical History: Other (Dialysis access) Social history: single. denies: smoking, alcohol abuse, prescription drug abuse Family history: diabetes, hypertension Medications and Allergies Allergies Allergy/AdvReac Type Severity Reaction Status Date / Time No Known Allergies Allergy Verified 02/05/22 14:20 Active Meds: Active Medications Acetaminophen (Acetaminophen 325 Mg Tab) 650 mg PO Q6H PRN PRN Reason: Pain MILD(1-3)/Fever >100.5/[place] Albuterol (Albuterol 2.5 Mg/3 Ml Nebu) 2.5 mg IH Q3HRT PRN PRN Reason: Shortness Of Breath Hydromorphone HCl (Hydromorphone 0.5 Mg/0.5 Ml Inj) 0.25 mg IV Q4H PRN PRN Reason: Pain, Moderate (4-6) Hydromorphone HCl (Hydromorphone 0.5 Mg/0.5 Ml Inj) 0.5 mg IV Q23H PRN PRN Reason: Pain , Severe (7-10) Cefepime HCl (Cefepime/Ns 1 Gm/100 Ml) 1 gm in 100 mls @ 200 mls/hr IV Q24H [place]; Protocol Last Admin: 02/06/22 01:14 Dose: 200 mls/hr Sodium Chloride (Nacl 0.9%) 100 mls @ 999 mls/hr IV ELVIN PRN PRN Reason: Hypotension Dextrose (D10w) 1,000 mls @ 75 mls/hr IV DIRECT [place] Last Admin: 02/06/22 18:06 Dose: 75 mls/hr Sodium Chloride (Nacl 0.9%) 100 mls @ 999 mls/hr IV ELVIN PRN PRN Reason: Hypotension Midodrine (Midodrine 10 Mg Tab) 5 mg PO TID@0800,1200,1600 [facility] Oxycodone/Acetaminophen (Oxycodone /Acetaminophen 5-325mg Tab) 1 tab PO Q16H PRN PRN Reason: Pain, Moderate (4-6) Sodium Chloride (Sodium Chloride 0.9% 10 Ml Flush Syringe) 10 ml IV BID [place] Last Admin: 02/06/22 10:18 Dose: 10 ml Sodium Chloride (Sodium Chloride 0.9% 10 Ml Flush Syringe) 10 ml IV PRN PRN PRN Reason: LINE FLUSH Review of Systems ROS unobtainable: due to mental status Exam - Vital Signs Vital signs: Vital Signs Pulse BP Pulse Ox 105 H 60/32 76 L 02/05/22 14:17 02/05/22 14:17 02/05/22 14:17 - Physical Exam Narrative exam: Constitutional: no acute distress Head: NC/AT Neck: supple Lungs: clear to auscultation CV: RRR, no M/R/G Abdomen: soft, non-tender, bowel sounds present Back: nontender Extremities: no edema, pulses WNL Skin: intact Neuro: Altered Results - Lab Results 02/06/22 04:59 02/06/22 04:59 Most recent lab results Calcium 8.6 mg/dL (8.4-10.2) 02/06/22 04:59 Assessment and Plan End-stage renal disease on hemodialysis Acidosis Hypotension, MAP > 65 without vasopressor requirements Acute encephalopathy Anemia of ESRD Hyperphosphatemia Hyperparathyroidism Plan for hemodialysis today. Patient is currently hemodynamically stable with MAP more than 65. Patient is a chronic hemodialysis patient. Since patient is confused and is on chronic dialysis, we will proceed with emergent dialysis given severe acidosis. No UF. Assess daily for needs for additional sessions of dialysis Continue midodrine Keep MAP more than 65 Epogen with HD as needed Transfuse for hemoglobin less than 7 Renally dose medications ESRD diet with 1.2-1. 4 g/kg/d protein intake
[2022-02-06] MEDS: MIDODRINE 10 MG TAB PO SCH (23:00)
[2022-02-07] MEDS: levETIRAcetam 500 MG in DEXTROSE 5% IN WATER 100 ML IV SCH ×3 (01:47→22:27)
[2022-02-07 01:51] LABS: Hepatitis B Surface Antigen Non-Reactive (Negative); Hepatitis C Virus Antibody Non-Reactive (NonReactive)
[2022-02-07 06:25] LABS: Hematocrit 22.7 % (35.5-45.6); Hemoglobin 7.4 gm/dl (11.8-15.2); Mean Corpuscular HGB Conc 32 % (32-34); Mean Corpuscular Volume 93 fl (84-94); Platelet Count 66 K/mm3 (140-440); Red Blood Count 2.44 M/mm3 (3.65-5.03); Red Cell Distribution Width 17.8 % (13.2-15.2)
[2022-02-07 06:39] LABS: Calcium 8.3 mg/dL (8.4-10.2)
[2022-02-07] MEDS: MIDODRINE 10 MG TAB PO SCH (08:10)
--- NOTE | 2022-02-07 08:46 | Progress Note ---
Assessment and Plan Assessment and plan: 61 YO Male with CHF, DM, history is CVA, Seizure Disorder, history of Hyperparathyroidism, ESRD on HD, HTN, PVD, Vascular Dementia with Behavioral Disturbance, Cerebral Atherosclerosis, BLE Pressure sores present on admission presents to ED for evaluation. Patient is confused with diminished cognition a nd is unable to provide history. Patient history taken from EMS staff, ED staff, as well as patient family who was made available by telephone for interview. Patient presented to [facility] outpatient clinic and was found to have hypotension with a systolic blood pressure in the 80s. EMS was notified and upon arrival the patient was found to be in distress and subsequent transported to [facility] for further care and evaluation of the aforementioned symptoms. The patient was seen and evaluated in the emergency department. All lab and imaging studies reviewed. Patient found to have a systolic blood pressure in the 60s with concomitant tachycardia suspected secondary to urinary tract infection complicated by sepsis, toxic metabolic encephalopathy, volume depletion, end-sta ge renal disease in need of urgent dialysis. Patient treated with IV fluid resuscitation therapy with mild improvement in symptoms. Patient admitted to IMCU due to increased risk of worsening symptoms and for medical stabilization. Patient initiated on sepsis protocol in ED. Patient is confused with diminished cognition but has a positive gag reflex and is able to protect his airway without difficulty the time my evaluation. No prior admission for review. No medication listed at time of admission for reconciliation. Advanced care planning conducted in ED. Nephrology team consulted in ED. Past History Past Medical History: diabetes, ESRD, heart failure, hypertension, PVD, stroke, other (See HPI) Past Surgical History: Other (Dialysis access) Social history: single. denies: smoking, alcohol abuse, prescription drug abuse Family history: diabetes, hypertension 02/06: Patient seen and examined continues with persistent hypoglycemia will ch bayron to D10. I did discuss with the sister who indicates that the patient has been having a failure to thrive over the past few days. That the patient ACTUALLY had a seizure of the doctor's office. We will obtain neurology consult in a.m.. No further seizures has been documented here so no need for the EEG unless recommended by the neurologist. We will resume diet as tolerated the sister also tells me that the patient has been refusing meds. She is not sure if the patient has been compliant with dialysis we will try to get information about about from the dialysis center that he goes to. In the meantime continue empiric treatment for underlying sepsis. We will give midodrine. I do not have a source for this but without infection. We will try to call the facility where he went to to see with urinary tract infection diagnosis was made at. Patient has not demonstrated any fever here. 02/07: Patient is markedly debilitated. Persistent hypotension remains. Initiated midodrine yesterday still systolic in the 80s multiple areas of calciphylaxis and pressure wounds. Will obtain speech evaluation. Again is unclear if the patient is compliant with dialysis and home medication notes from July Seems to allude to noncompliance. We will obtain hospice consultation for information only and await family decision. Ejection fraction noted at 15% very poor prognosis otherwise. Respiratory status despite improved. Continue empiric antibiotic coverage. Source of infection still elusive. (1) Sepsis Current Visit: Yes Status: Acute Plan to address problem: Sepsis protocol: Chest x-ray, urinalysis, CBC, IV antibiotic therapy, IV fluid resuscitation therapy, monitor urine output every shift, monitor fluid balance, maintain mean arterial pressure greater than equal to 65, serial lactic acid level, IV pressor support as clinically indicated. (2) Toxic metabolic encephalopathy Current Visit: Yes Status: Acute Plan to address problem: Treat sepsis, supportive care, neuro check, seizure precautions, aspiration precautions, fall precautions. (3) End stage renal disease Current Visit: Yes Status: Acute Plan to address problem: Nephrology team consulted in ED, dialysis per renal team. (4) Volume depletion Current Visit: Yes Status: Acute Plan to address problem: IV for resuscitation therapy, BMP, repeat BMP in AM. (5) severe protein malnutrition Current Visit: Yes Status: Acute Qualifiers: Protein-calorie malnutrition severity: Severe Plan to address problem: Increase protein intake, dietary supplementation. (6) End stage renal disease Current Visit: Yes Status: Acute Plan to address problem: Nephrology team consulted in ED, dialysis as per renal team. (7) Vascular dementia with behavior disturbance Current Visit: Yes Status: Acute Plan to address problem: Verbal prompt, verbal redirection, benzodiazepine therapy as clinically indicated. (8) Cerebral atherosclerosis Current Visit: Yes Status: Acute Plan to address problem: Risk factor reduction, antiplatelet therapy as clinically indicated. (9) Peripheral vascular disease Current Visit: Yes Status: Acute Plan to address problem: Supportive care, continue wound care, continue medical management. Outpatient vascular surgery follow-up. (10) multiple pressure ulcers present on admission Current Visit: Yes Status: Acute Plan to address problem: Wound care consulted, supportive care. (11) Seizure disorder Current Visit: Yes Status: Acute Plan to address problem: Seizure cautions, neuro check, supportive care. No seizure activity at this time. (12) Hyperparathyroidism Current Visit: Yes Status: Acute Plan to address problem: Continue medical management as clinically indicated, supportive care. 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 (20) Preventative health care Current Visit: Yes Status: Acute Plan to address problem: Patient to follow-up with primary care physician for all age and risk factor appropriate screening tests, risk factor reduction, +30 minutes. The high probability of a clinically significant, sudden or life threatening deterioration of the [multiple organ] system(s) required my full and direct attention, intervention and personal management. The aggregate critical care time was [60] minutes. This time is in addition to time spent performing reported procedures but includes the following: [x] Data Review and interpretation [x] Patient assessment and monitoring of vital signs [x] Documentation [x] Medication orders and management Hospitalist Physical - Constitutional Vitals: Temp Pulse Resp BP Pulse Ox 93.7 F L 66 21 82/56 95 02/07/22 05:43 02/07/22 06:46 02/07/22 06:46 02/07/22 06:46 02/07/22 06:46 General appearance: Present: mild distress HEART Score - HEART Score Troponin: Troponin T 0.521 ng/mL (0.00-0.029) H* 02/05/22 15:44 Results - Labs CBC & Chem 7: 02/07/22 05:56 02/07/22 05:56 Labs: Laboratory Last Values WBC 5.6 K/mm3 (4.5-11.0) 02/07/22 05:56 RBC 2.44 M/mm3 (3.65-5.03) L 02/07/22 05:56 Hgb 7.4 gm/dl (11.8-15.2) L 02/07/22 05:56 Hct 22.7 % (35.5-45.6) L 02/07/22 05:56 MCV 93 fl (84-94) 02/07/22 05:56 MCH 30 pg (28-32) 02/07/22 05:56 MCHC 32 % (32-34) 02/07/22 05:56 RDW 17.8 % (13.2-15.2) H 02/07/22 05:56 Plt Count 66 K/mm3 (140-440) L 02/07/22 05:56 Add Manual Diff Complete 02/06/22 04:59 Total Counted 100 02/06/22 04:59 Seg Neutrophils % Eight Section Blower 02/06/22 04:59 Seg Neuts % (Manual) 95.0 % (40.0-70.0) H 02/06/22 04:59 Band Neutrophils % 0 % 02/06/22 04:59 Lymphocytes % (Manual) 3.0 % (13.4-35.0) L 02/06/22 04:59 Reactive Lymphs % (Man) 0 % 02/06/22 04:59 Monocytes % (Manual) 2.0 % (0.0-7.3) 02/06/22 04:59 Eosinophils % (Manual) 0 % (0.0-4.3) 02/06/22 04:59 Basophils % (Manual) 0 % (0.0-1.8) 02/06/22 04:59 Metamyelocytes % 0 % 02/06/22 04:59 Myelocytes % 0 % 02/06/22 04:59 Promyelocytes % 0 % 02/06/22 04:59 Blast Cells % 0 % 02/06/22 04:59 Nucleated RBC % Not Reportable 02/06/22 04:59 Seg Neutrophils # Man 8.6 K/mm3 (1.8-7.7) H 02/06/22 04:59 Band Neutrophils # 0.0 K/mm3 02/06/22 04:59 Lymphocytes # (Manual) 0.3 K/mm3 (1.2-5.4) L 02/06/22 04:59 Abs React Lymphs (Man) 0.0 K/mm3 02/06/22 04:59 Monocytes # (Manual) 0.2 K/mm3 (0.0-0.8) 02/06/22 04:59 Eosinophils # (Manual) 0.0 K/mm3 (0.0-0.4) 02/06/22 04:59 Basophils # (Manual) 0.0 K/mm3 (0.0-0.1) 02/06/22 04:59 Metamyelocytes # 0.0 K/mm3 02/06/22 04:59 Myelocytes # 0.0 K/mm3 02/06/22 04:59 Promyelocytes # 0.0 K/mm3 02/06/22 04:59 Blast Cells # 0.0 K/mm3 02/06/22 04:59 WBC Morphology Not Reportable 02/06/22 04:59 Hypersegmented Neuts Not Reportable 02/06/22 04:59 Hyposegmented Neuts Not Reportable 02/06/22 04:59 Hypogranular Neuts Not Reportable 02/06/22 04:59 Smudge Cells Not Reportable 02/06/22 04:59 Toxic Granulation Not Reportable 02/06/22 04:59 Toxic Vacuolation Not Reportable 02/06/22 04:59 Dohle Bodies Not Reportable 02/06/22 04:59 Pelger-Huet Anomaly Not Reportable 02/06/22 04:59 Laney Rods Not Reportable 02/06/22 04:59 Platelet Estimate Consistent w auto 02/06/22 04:59 Clumped Platelets Not Reportable 02/06/22 04:59 Plt Clumps, EDTA Not Reportable 02/06/22 04:59 Large Platelets Not Reportable 02/06/22 04:59 Giant Platelets Not Reportable 02/06/22 04:59 Platelet Satelliting Not Reportable 02/06/22 04:59 Plt Morphology Comment Not Reportable 02/06/22 04:59 RBC Morphology Not Reportable 02/06/22 04:59 Dimorphic RBCs Not Reportable 02/06/22 04:59 Polychromasia Not Reportable 02/06/22 04:59 Hypochromasia Not Reportable 02/06/22 04:59 Poikilocytosis Not Reportable 02/06/22 04:59 Anisocytosis Not Reportable 02/06/22 04:59 Microcytosis Not Reportable 02/06/22 04:59 Macrocytosis Not Reportable 02/06/22 04:59 Spherocytes Not Reportable 02/06/22 04:59 Pappenheimer Bodies Not Reportable 02/06/22 04:59 Sickle Cells Not Reportable 02/06/22 04:59 Target Cells Not Reportable 02/06/22 04:59 Tear Drop Cells Not Reportable 02/06/22 04:59 Ovalocytes Not Reportable 02/06/22 04:59 Helmet Cells Not Reportable 02/06/22 04:59 [place] Bodies Not Reportable 02/06/22 04:59 Powderly Rings Not Reportable 02/06/22 04:59 [place] Cells Not Reportable 02/06/22 04:59 Bite Cells Not Reportable 02/06/22 04:59 Crenated Cell Not Reportable 02/06/22 04:59 Elliptocytes Not Reportable 02/06/22 04:59 Acanthocytes (Spur) 1+ 02/06/22 04:59 Rouleaux Not Reportable 02/06/22 04:59 Hemoglobin C Crystals Not Reportable 02/06/22 04:59 Schistocytes Not Reportable 02/06/22 04:59 Malaria parasites Not Reportable 02/06/22 04:59 [place] Bodies Not Reportable 02/06/22 04:59 Hem Pathologist Commnt No 02/06/22 04:59 PT 19.1 Sec. (12.2-14.9) H 02/05/22 15:44 INR 1.39 (0.87-1.13) H 02/05/22 15:44 Sodium 138 mmol/L (137-145) 02/07/22 05:56 Potassium 4.9 mmol/L (3.6-5.0) 02/07/22 05:56 Chloride 101.7 mmol/L (98-107) 02/07/22 05:56 Carbon Dioxide 23 mmol/L (22-30) D 02/07/22 05:56 Anion Gap 18 mmol/L 02/07/22 05:56 BUN 63 mg/dL (9-20) H 02/07/22 05:56 Creatinine 7.0 mg/dL (0.8-1.3) H 02/07/22 05:56 Estimated GFR 10 ml/min 02/07/22 05:56 BUN/Creatinine Ratio 9 % 02/07/22 05:56 Glucose 151 mg/dL (75-100) H 02/07/22 05:56 POC Glucose 157 mg/dL (70-105) H 02/07/22 02:03 Ketones Quantitative Negative (Negative) 02/05/22 15:44 Lactic Acid 1.80 mmol/L (0.7-2.0) 02/06/22 20:24 Calcium 8.3 mg/dL (8.4-10.2) L 02/07/22 05:56 Total Bilirubin 0.40 mg/dL (0.1-1.2) 02/06/22 04:59 AST 40 units/L (5-40) 02/06/22 04:59 ALT 105 units/L (7-56) H 02/06/22 04:59 Alkaline Phosphatase 392 units/L (35-129) H 02/06/22 04:59 Ammonia 22.0 umol/L (25-60) L 02/05/22 15:44 Total Creatine Kinase 80 units/L (55-170) 02/05/22 15:44 Troponin T 0.521 ng/mL (0.00-0.029) H* 02/05/22 15:44 NT-Pro-B Natriuret Pep > 48901 pg/mL (0-900) H 02/05/22 15:44 Total Protein 5.5 g/dL (6.3-8.2) L 02/06/22 04:59 Albumin 3.0 g/dL (3.9-5) L 02/06/22 04:59 Albumin/Globulin Ratio 1.2 % 02/06/22 04:59 Triglycerides 45 mg/dL (2-149) 02/05/22 15:44 Cholesterol 80 mg/dL (50-199) 02/05/22 15:44 LDL Cholesterol Direct 24 mg/dL (50-130) L 02/05/22 15:44 HDL Cholesterol 46 mg/dL (40-59) 02/05/22 15:44 Cholesterol/HDL Ratio 1.73 % 02/05/22 15:44 Salicylates < 0.3 mg/dL (2.8-20.0) L 02/05/22 15:44 Acetaminophen 5.0 ug/mL (10.0-30.0) L 02/05/22 15:44 Plasma/Serum Alcohol < 0.01 % (0-0.07) 02/05/22 15:44 Hepatitis A IgM Ab Non-reactive (NonReactive) 02/06/22 20:48 Hep Bs Antigen Non-reactive (Negative) 02/06/22 20:48 Hep B Core IgM Ab Non-reactive (NonReactive) 02/06/22 20:48 Hepatitis C Antibody Non-reactive (NonReactive) 02/06/22 20:48 Blood Type O POSITIVE 02/05/22 23:42 Antibody Screen Negative 02/05/22 23:42 Microbiology: Microbiology 02/05/22 15:44 Peripheral/Venous Blood Culture - Preliminary NO GROWTH AFTER 24 HOURS Active Medications - Current Medications Current Medications: Generic Name Dose Route Start Last Admin Trade Name Freq PRN Reason Stop Dose Admin Acetaminophen 650 mg 02/05/22 18:16 Acetaminophen 325 Mg Tab PO Q6H PRN Pain MILD(1-3)/Fever >100.5/[place] Albuterol 2.5 mg 02/05/22 18:16 Albuterol 2.5 Mg/3 Ml Nebu IH Q3HRT PRN Shortness Of Breath Hydromorphone HCl 0.25 mg 02/05/22 18:16 Hydromorphone 0.5 Mg/0.5 Ml Inj IV Q4H PRN Pain, Moderate (4-6) Hydromorphone HCl 0.5 mg 02/05/22 18:16 Hydromorphone 0.5 Mg/0.5 Ml Inj IV Q23H PRN Pain , Severe (7-10) Cefepime HCl 1 gm in 100 mls @ 200 mls/hr 02/05/22 19:30 02/06/22 20:30 Cefepime/Ns 1 Gm/100 Ml IV 02/09/22 19:59 200 mls/hr Q24H [place] Administration Protocol Dextrose 1,000 mls @ 75 mls/hr 02/06/22 14:00 02/06/22 18:06 D10w IV 75 mls/hr DIRECT [place] Administration Sodium Chloride 100 mls @ 999 mls/hr 02/06/22 15:00 Nacl 0.9% IV ELVIN PRN Hypotension Levetiracetam 500 mg/ Dextrose 105 mls @ 400 mls/hr 02/06/22 22:00 02/07/22 01:47 IV 400 mls/hr Q12H [place] Administration Midodrine 5 mg 02/07/22 12:00 Midodrine 5 Mg Tab PO TID@0800,1200,1600 [place] Oxycodone/Acetaminophen 1 tab 02/05/22 18:16 Oxycodone /Acetaminophen 5-325mg Tab PO Q16H PRN Pain, Moderate (4-6) Sodium Chloride 10 ml 02/05/22 22:00 02/07/22 01:47 Sodium Chloride 0.9% 10 Ml Flush Syringe IV 10 ml BID [place] Administration Sodium Chloride 10 ml 02/05/22 18:16 Sodium Chloride 0.9% 10 Ml Flush Syringe IV PRN PRN LINE FLUSH
[2022-02-07] MEDS: MIDODRINE 5 MG TAB PO SCH ×2 (11:37→16:44)
--- NOTE | 2022-02-07 15:34 | Consultation ---
History of Present Illness Consult date: 02/07/22 Reason for Consult: Seizuere History of present illness: The history reviewed from the chart , the patient is not able to speak . Past History Past Medical History: diabetes, ESRD, heart failure, hypertension, PVD, stroke, other (See HPI) Past Surgical History: Other (Dialysis access) Social history: single. denies: smoking, alcohol abuse, prescription drug abuse Family history: diabetes, hypertension Medications and Allergies Allergies Allergy/AdvReac Type Severity Reaction Status Date / Time No Known Allergies Allergy Verified 02/05/22 14:20 Active Meds: Active Medications Acetaminophen (Acetaminophen 325 Mg Tab) 650 mg PO Q6H PRN PRN Reason: Pain MILD(1-3)/Fever >100.5/[place] Albuterol (Albuterol 2.5 Mg/3 Ml Nebu) 2.5 mg IH Q3HRT PRN PRN Reason: Shortness Of Breath Hydromorphone HCl (Hydromorphone 0.5 Mg/0.5 Ml Inj) 0.25 mg IV Q4H PRN PRN Reason: Pain, Moderate (4-6) Hydromorphone HCl (Hydromorphone 0.5 Mg/0.5 Ml Inj) 0.5 mg IV Q23H PRN PRN Reason: Pain , Severe (7-10) Cefepime HCl (Cefepime/Ns 1 Gm/100 Ml) 1 gm in 100 mls @ 200 mls/hr IV Q24H [place]; Protocol Stop: 02/09/22 19:59 Last Admin: 02/06/22 20:30 Dose: 200 mls/hr Dextrose (D10w) 1,000 mls @ 75 mls/hr IV DIRECT [place] Last Admin: 02/06/22 18:06 Dose: 75 mls/hr Sodium Chloride (Nacl 0.9%) 100 mls @ 999 mls/hr IV ELVIN PRN PRN Reason: Hypotension Levetiracetam 500 mg/ Dextrose 105 mls @ 400 mls/hr IV Q12H [place] Last Admin: 02/07/22 10:56 Dose: 400 mls/hr Midodrine (Midodrine 5 Mg Tab) 5 mg PO TID@0800,1200,1600 [place] Last Admin: 02/07/22 11:37 Dose: 5 mg Oxycodone/Acetaminophen (Oxycodone /Acetaminophen 5-325mg Tab) 1 tab PO Q16H PRN PRN Reason: Pain, Moderate (4-6) Sodium Chloride (Sodium Chloride 0.9% 10 Ml Flush Syringe) 10 ml IV BID [place] Last Admin: 02/07/22 10:56 Dose: 10 ml Sodium Chloride (Sodium Chloride 0.9% 10 Ml Flush Syringe) 10 ml IV PRN PRN PRN Reason: LINE FLUSH Physical Examination - Vital Signs Vital Signs: Vital Signs Pulse BP Pulse Ox 105 H 60/32 76 L 02/05/22 14:17 02/05/22 14:17 02/05/22 14:17 - Physical Exam Narrative exam: The patient is drowsy, the patient is not able to follow mid line command , there is very minimal movement of the upper and lower extremity. Results - Laboratory Findings CBC and BMP: 02/07/22 05:56 02/07/22 05:56 Abnormal Lab Findings: Abnormal Labs 02/05/22 02/05/22 02/05/22 15:44 15:44 15:44 RBC 2.80 L Hgb 8.6 L Hct 25.8 L RDW 17.8 H Plt Count 98 L Seg Neuts % (Manual) 92.0 H Lymphocytes % (Manual) 5.0 L Seg Neutrophils # Man 7.8 H Lymphocytes # (Manual) 0.4 L PT 19.1 H INR 1.39 H Potassium 6.5 H* Chloride Carbon Dioxide 20 L BUN 80 H Creatinine 9.3 H Glucose POC Glucose Lactic Acid Calcium AST 72 H ALT 136 H Alkaline Phosphatase 480 H Ammonia Troponin T 0.521 H* NT-Pro-B Natriuret Pep > 97147 H Total Protein Albumin 3.3 L LDL Cholesterol Direct 24 L Salicylates Acetaminophen 02/05/22 02/05/22 02/05/22 15:44 15:44 15:44 RBC Hgb Hct RDW Plt Count Seg Neuts % (Manual) Lymphocytes % (Manual) Seg Neutrophils # Man Lymphocytes # (Manual) PT INR Potassium Chloride Carbon Dioxide BUN Creatinine Glucose POC Glucose Lactic Acid 2.70 H* Calcium AST ALT Alkaline Phosphatase Ammonia Troponin T NT-Pro-B Natriuret Pep Total Protein Albumin LDL Cholesterol Direct Salicylates < 0.3 L Acetaminophen 5.0 L 02/05/22 02/05/22 02/05/22 15:44 22:43 23:31 RBC Hgb Hct RDW Plt Count Seg Neuts % (Manual) Lymphocytes % (Manual) Seg Neutrophils # Man Lymphocytes # (Manual) PT INR Potassium Chloride Carbon Dioxide BUN Creatinine Glucose POC Glucose < 10 L Lactic Acid 4.00 H* Calcium AST ALT Alkaline Phosphatase Ammonia 22.0 L Troponin T NT-Pro-B Natriuret Pep Total Protein Albumin LDL Cholesterol Direct Salicylates Acetaminophen 02/05/22 02/06/22 02/06/22 23:36 01:05 01:38 RBC Hgb Hct RDW Plt Count Seg Neuts % (Manual) Lymphocytes % (Manual) Seg Neutrophils # Man Lymphocytes # (Manual) PT INR Potassium Chloride 107.4 H Carbon Dioxide 17 L BUN 78 H Creatinine 9.2 H Glucose 143 H POC Glucose 23 L 147 H Lactic Acid Calcium AST 48 H ALT 115 H Alkaline Phosphatase 423 H Ammonia Troponin T NT-Pro-B Natriuret Pep Total Protein 5.6 L Albumin 3.0 L LDL Cholesterol Direct Salicylates Acetaminophen 02/06/22 02/06/22 02/06/22 04:59 04:59 04:59 RBC 2.61 L Hgb 7.7 L Hct 24.5 L RDW 17.5 H Plt Count 81 L Seg Neuts % (Manual) 95.0 H Lymphocytes % (Manual) 3.0 L Seg Neutrophils # Man 8.6 H Lymphocytes # (Manual) 0.3 L PT INR Potassium Chloride 108.8 H Carbon Dioxide 15 L BUN 78 H Creatinine 9.2 H Glucose 26 L* POC Glucose Lactic Acid 3.30 H* Calcium AST ALT 105 H Alkaline Phosphatase 392 H Ammonia Troponin T NT-Pro-B Natriuret Pep Total Protein 5.5 L Albumin 3.0 L LDL Cholesterol Direct Salicylates Acetaminophen 02/06/22 02/06/22 02/06/22 05:10 06:23 11:45 RBC Hgb Hct RDW Plt Count Seg Neuts % (Manual) Lymphocytes % (Manual) Seg Neutrophils # Man Lymphocytes # (Manual) PT INR Potassium Chloride Carbon Dioxide BUN Creatinine Glucose POC Glucose 372 H 11 L 52 L Lactic Acid Calcium AST ALT Alkaline Phosphatase Ammonia Troponin T NT-Pro-B Natriuret Pep Total Protein Albumin LDL Cholesterol Direct Salicylates Acetaminophen 02/07/22 02/07/22 02/07/22 02:03 05:56 05:56 RBC 2.44 L Hgb 7.4 L Hct 22.7 L RDW 17.8 H Plt Count 66 L Seg Neuts % (Manual) Lymphocytes % (Manual) Seg Neutrophils # Man Lymphocytes # (Manual) PT INR Potassium Chloride Carbon Dioxide BUN 63 H Creatinine 7.0 H Glucose 151 H POC Glucose 157 H Lactic Acid Calcium 8.3 L AST ALT Alkaline Phosphatase Ammonia Troponin T NT-Pro-B Natriuret Pep Total Protein Albumin LDL Cholesterol Direct Salicylates Acetaminophen Assessment and Plan 1. Encephalopathy - multifactorial ( continue current management ). 2. No new medications recommended. 3. Neurological Prognosis is Guarded . Dr. Almanza
--- NOTE | 2022-02-07 17:21 | Electrocardiograph Report ---
[facility] Test Date: 2022-02-05 Test Time: 15:44:26 Pat Name: TRUDY GUSTAFSON Department: Room: A264 1 Gender: M Pediatric Registered Nurse: [id number] : 1960 Requested By: ROSINA DING Order Number: [id number] Reading MD: Chen Keys Measurements Intervals [place] Rate: 74 P: 87 MA: 226 QRS: 98 QRSD: 227 T: 83 QT: 524 QTc: 582 Interpretive Statements Sinus rhythm Prolonged MA interval RBBB and LPFB No previous ECG available for comparison Electronically Signed On 02-07-2022 17:21:35 EDT by Chen Keys
[2022-02-07] MEDS ORDERED: MIDODRINE 10 MG TAB PO SCH (19:00)
[2022-02-07] MEDS: CEFEPIME/NS 1 GM/100 ML 1 GM/100 ML BAG IV SCH (19:30)
[2022-02-07] MEDS ORDERED: MIDODRINE 5 MG TAB PO SCH (21:32)
--- NOTE | 2022-02-07 21:41 | Progress Note ---
Assessment and Plan End-stage renal disease on hemodialysis Acidosis Hypotension, MAP > 65 without vasopressor requirements Acute encephalopathy Anemia of ESRD Hyperphosphatemia Hyperparathyroidism Continue HD MWF Assess daily for needs for additional sessions of dialysis Continue midodrine, increased dose to 10 mg 3 times daily Keep MAP more than 65 Epogen with HD as needed Transfuse for hemoglobin less than 7 Renally dose medications ESRD diet with 1.2-1. 4 g/kg/d protein intake Subjective Date of service: 02/07/22 Principal diagnosis: Sepsis Interval history: Resting in bed Vitals, labs and I/os reviewed Interdisciplinary notes and consults reviewed Objective - Exam Narrative Exam: Constitutional: no acute distress Head: NC/AT Neck: supple Lungs: clear to auscultation CV: RRR, no M/R/G Abdomen: soft, non-tender, bowel sounds present Back: nontender Extremities: no edema, pulses WNL Skin: intact Neuro: Altered - Vital Signs Vital signs: Vital Signs - 12hr 02/07/22 02/07/22 02/07/22 09:45 10:00 10:15 Temperature Pulse Rate 71 71 83 Pulse Rate [ From Monitor] Respiratory 21 15 26 H Rate Blood Pressure 86/54 92/57 86/54 O2 Sat by Pulse 95 97 90 Oximetry 02/07/22 02/07/22 02/07/22 10:30 10:45 11:00 Temperature Pulse Rate 74 75 74 Pulse Rate [ From Monitor] Respiratory 20 20 19 Rate Blood Pressure 89/56 92/57 91/55 O2 Sat by Pulse 94 96 95 Oximetry 02/07/22 02/07/22 02/07/22 11:15 11:31 11:45 Temperature Pulse Rate 88 81 82 Pulse Rate [ From Monitor] Respiratory 9 L 18 21 Rate Blood Pressure 91/55 85/53 85/53 O2 Sat by Pulse 94 93 91 Oximetry 02/07/22 02/07/22 02/07/22 12:00 12:15 12:30 Temperature Pulse Rate 70 70 73 Pulse Rate [ 65 From Monitor] Respiratory 19 16 21 Rate Blood Pressure 90/59 90/59 94/61 O2 Sat by Pulse 98 92 91 Oximetry 02/07/22 02/07/22 02/07/22 12:45 13:00 13:15 Temperature 96.6 F L Pulse Rate 77 74 67 Pulse Rate [ From Monitor] Respiratory 16 18 17 Rate Blood Pressure 94/61 94/58 94/58 O2 Sat by Pulse 94 93 98 Oximetry 02/07/22 02/07/22 02/07/22 13:30 13:45 14:00 Temperature Pulse Rate 76 70 69 Pulse Rate [ From Monitor] Respiratory 20 16 13 Rate Blood Pressure 94/66 94/66 96/63 O2 Sat by Pulse 91 94 99 Oximetry 02/07/22 02/07/22 02/07/22 14:15 14:30 14:45 Temperature Pulse Rate 67 67 67 Pulse Rate [ From Monitor] Respiratory 18 16 18 Rate Blood Pressure 94/66 90/62 90/62 O2 Sat by Pulse 98 96 95 Oximetry 02/07/22 02/07/22 02/07/22 15:01 15:15 15:30 Temperature Pulse Rate 72 83 70 Pulse Rate [ From Monitor] Respiratory 13 12 17 Rate Blood Pressure 97/61 97/61 99/66 O2 Sat by Pulse 98 97 98 Oximetry 02/07/22 02/07/22 02/07/22 15:45 16:00 16:01 Temperature Pulse Rate 68 74 65 Pulse Rate [ 72 From Monitor] Respiratory 17 22 16 Rate Blood Pressure 99/66 99/66 O2 Sat by Pulse 98 99 97 Oximetry 02/07/22 02/07/22 02/07/22 16:15 16:30 16:45 Temperature Pulse Rate 66 65 63 Pulse Rate [ From Monitor] Respiratory 16 16 15 Rate Blood Pressure 99/66 97/66 97/66 O2 Sat by Pulse 100 100 98 Oximetry 02/07/22 02/07/22 02/07/22 17:00 17:01 17:15 Temperature 96.2 F L Pulse Rate 73 64 Pulse Rate [ From Monitor] Respiratory 24 17 Rate Blood Pressure 91/59 91/59 O2 Sat by Pulse 92 90 Oximetry 02/07/22 02/07/22 02/07/22 17:30 17:45 18:00 Temperature Pulse Rate 64 77 64 Pulse Rate [ From Monitor] Respiratory 18 25 H 21 Rate Blood Pressure 85/59 85/59 88/58 O2 Sat by Pulse 100 97 96 Oximetry 02/07/22 02/07/22 02/07/22 18:15 18:30 20:00 Temperature 93.8 F L Pulse Rate 71 65 Pulse Rate [ From Monitor] Respiratory 16 17 Rate Blood Pressure 88/58 93/64 O2 Sat by Pulse 95 97 Oximetry - Lab 02/07/22 05:56 02/07/22 05:56 Most recent lab results Calcium 8.3 mg/dL (8.4-10.2) L 02/07/22 05:56 Medications & Allergies - Medications Allergies/Adverse Reactions: Allergies No Known Allergies Allergy (Verified 02/05/22 14:20) Active Medications: Generic Name Dose Route Start Last Admin Trade Name Freq PRN Reason Stop Dose Admin Acetaminophen 650 mg 02/05/22 18:16 Acetaminophen 325 Mg Tab PO Q6H PRN Pain MILD(1-3)/Fever >100.5/[place] Albuterol 2.5 mg 02/05/22 18:16 Albuterol 2.5 Mg/3 Ml Nebu IH Q3HRT PRN Shortness Of Breath Hydromorphone HCl 0.25 mg 02/05/22 18:16 Hydromorphone 0.5 Mg/0.5 Ml Inj IV Q4H PRN Pain, Moderate (4-6) Hydromorphone HCl 0.5 mg 02/05/22 18:16 Hydromorphone 0.5 Mg/0.5 Ml Inj IV Q23H PRN Pain , Severe (7-10) Cefepime HCl 1 gm in 100 mls @ 200 mls/hr 02/05/22 19:30 02/06/22 20:30 Cefepime/Ns 1 Gm/100 Ml IV 02/09/22 19:59 200 mls/hr Q24H [place] Administration Protocol Dextrose 1,000 mls @ 75 mls/hr 02/06/22 14:00 02/06/22 18:06 D10w IV 75 mls/hr DIRECT [place] Administration Sodium Chloride 100 mls @ 999 mls/hr 02/06/22 15:00 Nacl 0.9% IV ELVIN PRN Hypotension Levetiracetam 500 mg/ Dextrose 105 mls @ 400 mls/hr 02/06/22 22:00 02/07/22 10:56 IV 400 mls/hr Q12H [place] Administration Oxycodone/Acetaminophen 1 tab 02/05/22 18:16 Oxycodone /Acetaminophen 5-325mg Tab PO Q16H PRN Pain, Moderate (4-6) Sodium Chloride 10 ml 02/05/22 22:00 02/07/22 10:56 Sodium Chloride 0.9% 10 Ml Flush Syringe IV 10 ml BID [place] Administration Sodium Chloride 10 ml 02/05/22 18:16 Sodium Chloride 0.9% 10 Ml Flush Syringe IV PRN PRN LINE FLUSH
[2022-02-07] MEDS: DEXTROSE 10% IN WATER 1,000 ML IV SCH (22:28)
[2022-02-08] MEDS: levETIRAcetam 500 MG in DEXTROSE 5% IN WATER 100 ML IV SCH (11:46)
[2022-02-08] MEDS ORDERED: MIDODRINE 10 MG TAB PO SCH (12:00)
[2022-02-08] MEDS: DEXTROSE 10% IN WATER 1,000 ML IV SCH (12:02)
--- NOTE | 2022-02-08 12:41 | Discharge Summary ---
Providers - Providers Date of Admission: 02/05/22 18:16 Attending physician: GONSALO GOLDEN MD 02/05/22 19:19 Consult to Wound/ET Nurse [CONS] Routine Reason For Exam: wound eval 02/06/22 09:06 Consult to Physician [CONS] Routine Comment: Consulting Provider: CRISSY SANDOVAL Physician Instructions: Reason For Exam: ESRD 02/06/22 09:46 Consult to PICC Line RN [CONS] Routine Reason For Exam: ABT's Type Line:: PICC 02/06/22 19:56 Consult to Physician [CONS] Routine Comment: Consulting Provider: CHARLIE GONSALEZ Physician Instructions: Reason For Exam: SEIZURE 02/07/22 08:41 Speech Therapy Evaluation and Treat [CONS] Routine Reason For Exam: dysphagia Primary care physician: ANGEL VIGIL MD Hospitalization Reason for admission: Hypertension Condition: Stable Hospital course: 61 YO Male with CHF, DM, history is CVA, Seizure Disorder, history of Hyperparathyroidism, ESRD on HD, HTN, PVD, Vascular Dementia with Behavioral Disturbance, Cerebral Atherosclerosis, BLE Pressure sores present on admission presents to ED for evaluation. Patient is confused with diminished cognition and is unable to provide history. Patient history taken from EMS staff, ED staff, as well as patient family who was made available by telephone for interview. Patient presented to [place] outpatient clinic and was found to have hypotension with a systolic blood pressure in the 80s. EMS was notified and upon arrival the patient was found to be in distress and subsequent transported to [facility] for further care and evaluation of the aforementioned symptoms. The patient was seen and evaluated in the emergency department. All lab and imaging studies reviewed. Patient found to have a systolic blood pressure in the 60s with concomitant tachycardia suspected secondary to urinary tract infection complicated by sepsis, toxic metabolic encephalopathy, volume depletion, end- stage renal disease in need of urgent dialysis. Patient treated with IV fluid resuscitation therapy with mild improvement in symptoms. Patient admitted to [facility] due to increased risk of worsening symptoms and for medical stabilization. Patient initiated on sepsis protocol in ED. Patient is confused with diminished cognition but has a positive gag reflex and is able to protect his airway without difficulty the time my evaluation. No prior admission for review. No medication listed at time of admission for reconciliation. Advanced care planning conducted in ED. Nephrology team consulted in ED. Past History Past Medical History: diabetes, ESRD, heart failure, hypertension, PVD, stroke, other (See HPI) Past Surgical History: Other (Dialysis access) Social history: single. denies: smoking, alcohol abuse, prescription drug abuse Family history: diabetes, hypertension 02/06: Patient seen and examined continues with persistent hypoglycemia will change to D10. I did discuss with the sister who indicates that the patient has been having a failure to thrive over the past few days. That the patient ACTUALLY had a seizure of the doctor's office. We will obtain neurology consult in a.m.. No further seizures has been documented here so no need for the EEG unless recommended by the neurologist. We will resume diet as tolerated the sister also tells me that the patient has been refusing meds. She is not sure if the patient has been compliant with dialysis we will try to get information about about from the dialysis center that he goes to. In the meantime continue empiric treatment for underlying sepsis. We will give midodrine. I do not have a source for this but without infection. We will try to call the facility where he went to to see with urinary tract infection diagnosis was made at. Patient has not demonstrated any fever here. 02/07: Patient is markedly debilitated. Persistent hypotension remains. Initiated midodrine yesterday still systolic in the 80s multiple areas of calciphylaxis and pressure wounds. Will obtain speech evaluation. Again is unclear if the patient is compliant with dialysis and home medication notes from July Seems to allude to noncompliance. We will obtain hospice consultation for information only and await family decision. Ejection fraction noted at 15% very poor prognosis otherwise. Respiratory status despite improved. Continue empiric antibiotic coverage. Source of infection still elusive. 02/08: Patient remains with hypotension although clinically stable not symptomatic. Medically stable for discharge to LTAC for continued evaluation while family calibrates on hospice if no improvement. (1) Sepsis Current Visit: Yes Status: Acute Plan to address problem: Sepsis protocol: Chest x-ray, urinalysis, CBC, IV antibiotic therapy, IV fluid resuscitation therapy, monitor urine output every shift, monitor fluid balance, maintain mean arterial pressure greater than equal to 65, serial lactic acid level, IV pressor support as clinically indicated. (2) Toxic metabolic encephalopathy Current Visit: Yes Status: Acute Plan to address problem: Treat sepsis, supportive care, neuro check, seizure precautions, aspiration precautions, fall precautions. (3) End stage renal disease Current Visit: Yes Status: Acute Plan to address problem: Nephrology team consulted in ED, dialysis per renal team. (4) Volume depletion Current Visit: Yes Status: Acute Plan to address problem: IV for resuscitation therapy, BMP, repeat BMP in AM. (5) severe protein malnutrition Current Visit: Yes Status: Acute Qualifiers: Protein-calorie malnutrition severity: Severe Plan to address problem: Increase protein intake, dietary supplementation. (6) End stage renal disease Current Visit: Yes Status: Acute Plan to address problem: Nephrology team consulted in ED, dialysis as per renal team. (7) Vascular dementia with behavior disturbance Current Visit: Yes Status: Acute Plan to address problem: Verbal prompt, verbal redirection, benzodiazepine therapy as clinically indicated. (8) Cerebral atherosclerosis Current Visit: Yes Status: Acute Plan to address problem: Risk factor reduction, antiplatelet therapy as clinically indicated. (9) Peripheral vascular disease Current Visit: Yes Status: Acute Plan to address problem: Supportive care, continue wound care, continue medical management. Outpatient vascular surgery follow-up. (10) multiple including left foot, right upper extremity, right lower extremity, pressure ulcers present on admission unstageable Current Visit: Yes Status: Acute Plan to address problem: Wound care consulted, supportive care. (11) Seizure disorder Current Visit: Yes Status: Acute Plan to address problem: Seizure cautions, neuro check, supportive care. No seizure activity at this time. (12) Hyperparathyroidism Current Visit: Yes Status: Acute Plan to address problem: Continue medical management as clinically indicated, supportive care. (13) Hyperkalemia Current Visit: Yes Status: Acute Plan to address problem: Insulin, D50, BMP, repeat BMP in a.m., no EKG changes (14) cardiomyopathy possibly nonischemic with EF of 15% (15) calciphylaxis (16) thrombocytopenia (18) Advance care planning Current Visit: Yes Status: Acute Plan to address problem: Disease education done, care plan discussed, diagnoses discussed, prognosis discussed, patient is full code, +30 minutes. (19) Preventative health care Current Visit: Yes Status: Acute Plan to address problem: Patient to follow-up with primary care physician for all age and risk factor appropriate screening tests, risk factor reduction, +30 minutes. Disposition: [address] [place] [address] Final Discharge Diagnosis (Prints w/discharge instructions): (1) Sepsis. (2) Toxic metabolic encephalopathy. (3) End stage renal disease. (4) Volume depletion. (5) severe protein malnutrition. (6) End stage renal disease. (7) Vascular dementia with behavior disturbance. (8) Cerebral atherosclerosis. (9) Peripheral vascular disease. (10) multiple including left foot, right upper extremity, right lower extremity, pressure ulcers present on admission unstageable. (11) Seizure disorder. (12) Hyperparathyroidism. (13) Hyperkalemia. (14) cardiomyopathy possibly nonischemic with EF of 15%. (15) calciphylaxis. (16) thrombocytopenia. (18) Advance care planning. (19) Preventative health care Time spent for discharge: 35 mins Core Measure Documentation - Palliative Care Palliative Care/ Comfort Measures: Not Applicable - Core Measures Any of the following diagnoses?: none Exam - Physical Exam Narrative exam: - Physical exam Narrative exam: General appearance: Present: mild distress - EENT Eyes: Present: PERRL ENT: hearing decreased - Neck Neck: Present: supple, normal ROM - Respiratory Respiratory effort: normal Respiratory: bilateral: diminished - Cardiovascular Heart Sounds: Present: S1 & S2. Absent: rub, click - Extremities Extremities: abnormal Extremity abnormal: black, pulses diminished Peripheral Pulses: abnormal (Capillary refill greater than 3.5 seconds) - Abdominal General gastrointestinal: Present: soft, non-tender, non-distended - Integumentary Integumentary: Present: Please see wound care documentation for multiple skin ulcers as documented also pictorially clammy, decreased turgor - Musculoskeletal Musculoskeletal: generalized weakness - Psychiatric Psychiatric: no appropriate mood/affect, no intact judgment & insight, no memory intact - Neurologic Neurologic: CNII-XII intact, moves all extremities, no gait normal - Constitutional Vitals: Temp Pulse Resp BP Pulse Ox 97 F L 58 L 15 98/69 89 02/08/22 04:00 02/08/22 11:51 02/08/22 11:51 02/08/22 11:51 02/08/22 07:49 Plan Follow up with: ANGEL VIGIL MD [Primary Care Provider] - 3-5 Days
[2022-02-08 14:28] VITALS: BP 100/70
--- NOTE | 2022-02-08 19:37 | Progress Note ---
Assessment and Plan End-stage renal disease on hemodialysis Acidosis Hypotension, MAP > 65 without vasopressor requirements Acute encephalopathy Anemia of ESRD Hyperphosphatemia Hyperparathyroidism Continue HD MWF Assess daily for needs for additional sessions of dialysis Continue midodrine Keep MAP more than 65 Epogen with HD as needed Transfuse for hemoglobin less than 7 Renally dose medications ESRD diet with 1.2-1. 4 g/kg/d protein intake Agree with goals of care discussion, continue dialysis in the interim Subjective Date of service: 02/08/22 Principal diagnosis: Sepsis Interval history: Resting in bed Vitals, labs and I/os reviewed Interdisciplinary notes and consults reviewed Objective - Exam Narrative Exam: Constitutional: no acute distress Head: NC/AT Neck: supple Lungs: clear to auscultation CV: RRR, no M/R/G Abdomen: soft, non-tender, bowel sounds present Back: nontender Extremities: no edema, pulses WNL Skin: intact Neuro: Altered - Vital Signs Vital signs: Vital Signs - 12hr 02/08/22 02/08/22 02/08/22 07:37 07:39 07:41 Temperature Pulse Rate 58 L 63 56 L Pulse Rate [ From Monitor] Respiratory 20 17 17 Rate Respiratory Rate [ Generalized] Blood Pressure 89/59 89/59 89/59 O2 Sat by Pulse 100 98 98 Oximetry 02/08/22 02/08/22 02/08/22 07:43 07:45 07:47 Temperature Pulse Rate 58 L 63 60 Pulse Rate [ From Monitor] Respiratory 17 19 17 Rate Respiratory Rate [ Generalized] Blood Pressure 89/59 89/59 89/59 O2 Sat by Pulse 100 100 88 Oximetry 02/08/22 02/08/22 02/08/22 07:49 08:00 10:00 Temperature 97.2 F L Pulse Rate 61 67 Pulse Rate [ 69 From Monitor] Respiratory 17 20 Rate Respiratory 14 Rate [ Generalized] Blood Pressure 89/59 O2 Sat by Pulse 89 100 Oximetry 02/08/22 02/08/22 02/08/22 10:17 10:19 10:21 Temperature Pulse Rate 59 L 64 58 L Pulse Rate [ From Monitor] Respiratory 23 20 22 Rate Respiratory Rate [ Generalized] Blood Pressure O2 Sat by Pulse Oximetry 02/08/22 02/08/22 02/08/22 10:23 10:25 10:27 Temperature Pulse Rate 56 L 57 L 55 L Pulse Rate [ From Monitor] Respiratory 18 21 20 Rate Respiratory Rate [ Generalized] Blood Pressure O2 Sat by Pulse Oximetry 02/08/22 02/08/22 02/08/22 10:29 10:31 10:33 Temperature Pulse Rate 56 L 56 L 57 L Pulse Rate [ From Monitor] Respiratory 19 19 22 Rate Respiratory Rate [ Generalized] Blood Pressure 92/64 92/64 O2 Sat by Pulse Oximetry 02/08/22 02/08/22 02/08/22 10:35 10:37 10:39 Temperature Pulse Rate 58 L 58 L 57 L Pulse Rate [ From Monitor] Respiratory 23 19 17 Rate Respiratory Rate [ Generalized] Blood Pressure 92/64 92/64 92/64 O2 Sat by Pulse Oximetry 02/08/22 02/08/22 02/08/22 10:41 10:43 10:44 Temperature Pulse Rate 54 L 55 L 57 L Pulse Rate [ From Monitor] Respiratory 16 20 17 Rate Respiratory Rate [ Generalized] Blood Pressure 92/64 92/64 92/64 O2 Sat by Pulse Oximetry 02/08/22 02/08/22 02/08/22 10:45 10:47 10:49 Temperature Pulse Rate 57 L 54 L 55 L Pulse Rate [ From Monitor] Respiratory 17 18 19 Rate Respiratory Rate [ Generalized] Blood Pressure 92/64 92/64 92/64 O2 Sat by Pulse Oximetry 02/08/22 02/08/22 02/08/22 10:51 10:53 10:55 Temperature Pulse Rate 57 L 57 L 53 L Pulse Rate [ From Monitor] Respiratory 18 14 19 Rate Respiratory Rate [ Generalized] Blood Pressure 92/64 92/64 92/64 O2 Sat by Pulse Oximetry 02/08/22 02/08/22 02/08/22 10:57 10:59 11:00 Temperature Pulse Rate 56 L 64 61 Pulse Rate [ From Monitor] Respiratory 25 H 19 19 Rate Respiratory Rate [ Generalized] Blood Pressure 92/64 92/64 98/69 O2 Sat by Pulse Oximetry 02/08/22 02/08/22 02/08/22 11:01 11:03 11:05 Temperature Pulse Rate 61 58 L 58 L Pulse Rate [ From Monitor] Respiratory 19 17 14 Rate Respiratory Rate [ Generalized] Blood Pressure 98/69 98/69 98/69 O2 Sat by Pulse Oximetry 02/08/22 02/08/22 02/08/22 11:07 11:09 11:11 Temperature Pulse Rate 53 L 56 L 56 L Pulse Rate [ From Monitor] Respiratory 16 17 20 Rate Respiratory Rate [ Generalized] Blood Pressure 98/69 98/69 98/69 O2 Sat by Pulse Oximetry 02/08/22 02/08/22 02/08/22 11:13 11:15 11:17 Temperature Pulse Rate 58 L 56 L 55 L Pulse Rate [ From Monitor] Respiratory 17 16 17 Rate Respiratory Rate [ Generalized] Blood Pressure 98/69 98/69 98/69 O2 Sat by Pulse Oximetry 02/08/22 02/08/22 02/08/22 11:19 11:21 11:23 Temperature Pulse Rate 55 L 53 L 55 L Pulse Rate [ From Monitor] Respiratory 16 16 20 Rate Respiratory Rate [ Generalized] Blood Pressure 98/69 98/69 98/69 O2 Sat by Pulse Oximetry 02/08/22 02/08/22 02/08/22 11:25 11:27 11:29 Temperature Pulse Rate 55 L 57 L 56 L Pulse Rate [ From Monitor] Respiratory 19 16 13 Rate Respiratory Rate [ Generalized] Blood Pressure 98/69 98/69 98/69 O2 Sat by Pulse Oximetry 02/08/22 02/08/22 02/08/22 11:31 11:33 11:35 Temperature Pulse Rate 56 L 56 L 64 Pulse Rate [ From Monitor] Respiratory 14 16 18 Rate Respiratory Rate [ Generalized] Blood Pressure 98/69 98/69 98/69 O2 Sat by Pulse Oximetry 02/08/22 02/08/22 02/08/22 11:37 11:39 11:41 Temperature Pulse Rate 59 L 59 L 62 Pulse Rate [ From Monitor] Respiratory 14 13 17 Rate Respiratory Rate [ Generalized] Blood Pressure 98/69 98/69 98/69 O2 Sat by Pulse Oximetry 02/08/22 02/08/22 02/08/22 11:43 11:45 11:47 Temperature Pulse Rate 57 L 58 L 57 L Pulse Rate [ From Monitor] Respiratory 19 12 12 Rate Respiratory Rate [ Generalized] Blood Pressure 98/69 98/69 98/69 O2 Sat by Pulse Oximetry 02/08/22 02/08/22 02/08/22 11:49 11:51 12:00 Temperature 97 F L Pulse Rate 56 L 58 L 56 L Pulse Rate [ 69 From Monitor] Respiratory 19 15 20 Rate Respiratory Rate [ Generalized] Blood Pressure 98/69 98/69 O2 Sat by Pulse 100 Oximetry 02/08/22 02/08/22 02/08/22 12:51 12:53 12:55 Temperature Pulse Rate 52 L 56 L 63 Pulse Rate [ From Monitor] Respiratory 16 16 13 Rate Respiratory Rate [ Generalized] Blood Pressure 106/70 106/70 106/70 O2 Sat by Pulse Oximetry 02/08/22 02/08/22 02/08/22 12:57 12:59 13:00 Temperature Pulse Rate 57 L 61 61 Pulse Rate [ From Monitor] Respiratory 14 17 19 Rate Respiratory Rate [ Generalized] Blood Pressure 106/70 106/70 94/64 O2 Sat by Pulse Oximetry 02/08/22 02/08/22 02/08/22 13:01 13:03 13:05 Temperature Pulse Rate 60 59 L 58 L Pulse Rate [ From Monitor] Respiratory 13 17 11 L Rate Respiratory Rate [ Generalized] Blood Pressure 94/64 94/64 94/64 O2 Sat by Pulse Oximetry 02/08/22 02/08/22 02/08/22 13:07 13:08 13:09 Temperature Pulse Rate 55 L 55 L 57 L Pulse Rate [ From Monitor] Respiratory 14 21 15 Rate Respiratory Rate [ Generalized] Blood Pressure 94/64 94/64 94/64 O2 Sat by Pulse Oximetry 02/08/22 02/08/22 02/08/22 13:15 13:17 13:19 Temperature Pulse Rate 58 L 55 L 54 L Pulse Rate [ From Monitor] Respiratory 14 8 L 14 Rate Respiratory Rate [ Generalized] Blood Pressure 94/64 94/64 94/64 O2 Sat by Pulse Oximetry 02/08/22 02/08/22 02/08/22 13:21 13:23 13:25 Temperature Pulse Rate 58 L 55 L 57 L Pulse Rate [ From Monitor] Respiratory 14 13 13 Rate Respiratory Rate [ Generalized] Blood Pressure 94/64 94/64 94/64 O2 Sat by Pulse 89 Oximetry 02/08/22 02/08/22 02/08/22 13:27 13:29 13:30 Temperature Pulse Rate 55 L 56 L 55 L Pulse Rate [ From Monitor] Respiratory 16 15 17 Rate Respiratory Rate [ Generalized] Blood Pressure 94/64 94/64 93/70 O2 Sat by Pulse Oximetry 02/08/22 02/08/22 02/08/22 13:31 13:33 13:35 Temperature Pulse Rate 53 L 56 L 58 L Pulse Rate [ From Monitor] Respiratory 15 15 14 Rate Respiratory Rate [ Generalized] Blood Pressure 93/70 93/70 94/64 O2 Sat by Pulse Oximetry 02/08/22 02/08/22 02/08/22 13:37 13:39 13:41 Temperature Pulse Rate 55 L 52 L 56 L Pulse Rate [ From Monitor] Respiratory 16 17 18 Rate Respiratory Rate [ Generalized] Blood Pressure 94/64 94/64 94/64 O2 Sat by Pulse Oximetry 02/08/22 02/08/22 02/08/22 13:43 13:45 13:47 Temperature Pulse Rate 55 L 53 L 53 L Pulse Rate [ From Monitor] Respiratory 18 15 17 Rate Respiratory Rate [ Generalized] Blood Pressure 94/64 94/64 94/64 O2 Sat by Pulse Oximetry 02/08/22 02/08/22 02/08/22 13:49 13:51 13:53 Temperature Pulse Rate 55 L 54 L 52 L Pulse Rate [ From Monitor] Respiratory 12 16 16 Rate Respiratory Rate [ Generalized] Blood Pressure 94/64 94/64 94/64 O2 Sat by Pulse Oximetry 02/08/22 02/08/22 02/08/22 13:55 13:57 13:59 Temperature Pulse Rate 51 L 53 L 53 L Pulse Rate [ From Monitor] Respiratory 14 22 15 Rate Respiratory Rate [ Generalized] Blood Pressure 94/64 94/64 94/64 O2 Sat by Pulse Oximetry 02/08/22 02/08/22 02/08/22 14:00 14:01 14:03 Temperature Pulse Rate 53 L 55 L 55 L Pulse Rate [ From Monitor] Respiratory 20 17 20 Rate Respiratory Rate [ Generalized] Blood Pressure 100/70 100/70 100/70 O2 Sat by Pulse Oximetry 02/08/22 02/08/22 02/08/22 14:05 14:07 14:09 Temperature Pulse Rate 53 L 54 L 56 L Pulse Rate [ From Monitor] Respiratory 22 8 L 20 Rate Respiratory Rate [ Generalized] Blood Pressure 100/70 100/70 100/70 O2 Sat by Pulse Oximetry 02/08/22 02/08/22 02/08/22 14:11 14:13 14:15 Temperature Pulse Rate 55 L 57 L 59 L Pulse Rate [ From Monitor] Respiratory 20 22 15 Rate Respiratory Rate [ Generalized] Blood Pressure 100/70 100/70 100/70 O2 Sat by Pulse Oximetry 09/02/08/22 02/08/22 14:17 14:19 14:21 Temperature Pulse Rate 56 L 59 L 54 L Pulse Rate [ From Monitor] Respiratory 18 14 16 Rate Respiratory Rate [ Generalized] Blood Pressure 100/70 100/70 100/70 O2 Sat by Pulse Oximetry 02/08/22 02/08/22 14:23 14:25 Temperature Pulse Rate 55 L 57 L Pulse Rate [ From Monitor] Respiratory 17 20 Rate Respiratory Rate [ Generalized] Blood Pressure 100/70 100/70 O2 Sat by Pulse Oximetry - Lab 02/07/22 05:56 02/07/22 05:56 Most recent lab results Calcium 8.3 mg/dL (8.4-10.2) L 02/07/22 05:56 Medications & Allergies - Medications Allergies/Adverse Reactions: Allergies No Known Allergies Allergy (Verified 02/05/22 14:20) Home Medications: Home Medications Medication Instructions Recorded Confirmed Last Taken Type Midodrine [Proamatine] 10 mg PO TID@0800,1200,1600 tablet 02/08/22 Unknown Rx oxyCODONE /ACETAMINOPHEN [Percocet 1 tab PO Q16H PRN tablet 02/08/22 Unknown Rx 5/325 mg] Active Medications: Generic Name Dose Route Start Last Admin Trade Name Freq PRN Reason Stop Dose Admin Acetaminophen 650 mg 02/05/22 18:16 Acetaminophen 325 Mg Tab PO Q6H PRN Pain MILD(1-3)/Fever >100.5/[place] Albuterol 2.5 mg 02/05/22 18:16 Albuterol 2.5 Mg/3 Ml Nebu IH Q3HRT PRN Shortness Of Breath Hydromorphone HCl 0.25 mg 02/05/22 18:16 Hydromorphone 0.5 Mg/0.5 Ml Inj IV Q4H PRN Pain, Moderate (4-6) Hydromorphone HCl 0.5 mg 02/05/22 18:16 Hydromorphone 0.5 Mg/0.5 Ml Inj IV Q23H PRN Pain , Severe (7-10) Cefepime HCl 1 gm in 100 mls @ 200 mls/hr 02/05/22 19:30 02/07/22 19:30 Cefepime/Ns 1 Gm/100 Ml IV 02/09/22 19:59 200 mls/hr Q24H [place] Administration Protocol Dextrose 1,000 mls @ 75 mls/hr 02/06/22 14:00 02/08/22 12:02 D10w IV 75 mls/hr DIRECT [place] Administration Sodium Chloride 100 mls @ 999 mls/hr 02/06/22 15:00 Nacl 0.9% IV [place] PRN Hypotension Levetiracetam 500 mg/ Dextrose 105 mls @ 400 mls/hr 02/06/22 22:00 02/08/22 11:46 IV 400 mls/hr Q12H [place] Administration Midodrine 10 mg 02/08/22 12:00 02/08/22 11:47 Midodrine 10 Mg Tab PO 10 mg TID@0800,1200,1600 [place] Administration Oxycodone/Acetaminophen 1 tab 02/05/22 18:16 Oxycodone /Acetaminophen 5-325mg Tab PO Q16H PRN Pain, Moderate (4-6) Sodium Chloride 10 ml 02/05/22 22:00 02/08/22 11:47 Sodium Chloride 0.9% 10 Ml Flush Syringe IV 10 ml BID [place] Administration Sodium Chloride 10 ml 02/05/22 18:16 Sodium Chloride 0.9% 10 Ml Flush Syringe IV PRN PRN LINE FLUSH
== END 2022-02-08 16:30 | DRG 871 ==
LOC: ED 14:15 → IMCU 18:16
PROVIDERS: ADMIT Internal Medicine; ATTEND Internal Medicine
PROC: 05HM33Z Insertion of Infusion Device into Right Internal Jugular Vein, Percutaneous Approach (ICD-10-PCS; principal; 2022-02-05)
PROC: B543ZZA Ultrasonography of Right Jugular Veins, Guidance (ICD-10-PCS; 2022-02-05)
PROC: 06HM33Z Insertion of Infusion Device into Right Femoral Vein, Percutaneous Approach (ICD-10-PCS; 2022-02-05)
PROC: B54BZZA Ultrasonography of Right Lower Extremity Veins, Guidance (ICD-10-PCS; 2022-02-05)
PROC: 5A1D70Z Performance of Urinary Filtration, Intermittent, Less than 6 Hours Per Day (ICD-10-PCS; 2022-02-06)
DX: A41.9 Sepsis, unspecified organism (principal); E43 Unspecified severe protein-calorie malnutrition; G92.8 Other toxic encephalopathy; N18.6 End stage renal disease; N39.0 Urinary tract infection, site not specified; F01.51 Vascular dementia, unspecified severity, with behavioral disturbance; I13.2 Hypertensive heart and chronic kidney disease with heart failure and with stage 5 chronic kidney disease, or end stage renal disease; I42.8 Other cardiomyopathies; L89.890 Pressure ulcer of other site, unstageable; Z68.20 Body mass index [BMI] 20.0-20.9, adult; L89.90 Pressure ulcer of unspecified site, unspecified stage; E11.22 Type 2 diabetes mellitus with diabetic chronic kidney disease; I73.9 Peripheral vascular disease, unspecified; E86.9 Volume depletion, unspecified; G40.909 Epilepsy, unspecified, not intractable, without status epilepticus; D69.6 Thrombocytopenia, unspecified; I50.9 Heart failure, unspecified; I67.2 Cerebral atherosclerosis; E21.3 Hyperparathyroidism, unspecified; E87.5 Hyperkalemia; Z20.822 Contact with and (suspected) exposure to COVID-19; Z82.49 Family history of ischemic heart disease and other diseases of the circulatory system; Z83.3 Family history of diabetes mellitus
CPT/HCPCS: 36415; 71045; 76700; 80048; 80053; 80061; 80074; 80320; 82010; 82140; 82550; 82962; 83880; 84484; 85007; 85025; 85027; 85610; 86850; 86900; 86901; 87040; 93005; 93306; 94640; 95819; 96374; 96375; 96376; 99285; G0378; J3490; J7060; J7070; Q9967; C8929; G0480; J0692; J1815; J1953; J7030